=== PATIENT | female | born 1940 | race African-American/Black ===

== ENCOUNTER → 2019-08-16 | Outpatient (CLI) | payer OTHER, BC | LOC: CAT 10:52 | DX: R07.89 Other chest pain (principal) ==

== ENCOUNTER → 2019-11-12 | Outpatient (CLI) | payer OTHER, BC | LOC: CAT 12:23 → LABMALL 13:51 → CAT 13:51 | PROVIDERS: Family Medicine | DX: Z01.812 Encounter for preprocedural laboratory examination (principal); R93.89 Abnormal findings on diagnostic imaging of other specified body structures; K44.9 Diaphragmatic hernia without obstruction or gangrene; I70.0 Atherosclerosis of aorta; M25.70 Osteophyte, unspecified joint; J98.4 Other disorders of lung ==

== ENCOUNTER 2020-03-18 13:59 | Inpatient (IN) | payer OTHER, BC ==
[~2020-03-18] VITALS: Ht 170.2 cm; Wt 85.1 kg
--- NOTE | ~2020-03-18 | EMS ---
[place] [address] EMS Patient Care Report Name: ROSHAN BRICE Room #: 350-P ADM IN M.R.#: [id number] Admission: 03/18/20 Attend Phys: Trung Almaraz MD Discharge: Date of : 42 Report #: [id number] THIS REPORT FOR: //name// Report Transmitted: 03/20/2020 02:14 EMS Care Summary [place], [place]/[facility] Incident [id number] @ 03/18/2020 12:32 Incident Location [facility] [address] [place] [address] Patient ROSHAN BRICE Female, 80 Years 1940 Patient Address [address] [place] [address] Patient History Chronic Obstructive Pulmonary Disease (COPD),Diabetes, Patient Allergies Other drug allergy,Glimepiride, Patient Medications Other, Chief Complaint Altered mental status Disposition Transported No Lights/[place] Dispatch Reason Diabetic Problem Transported To [facility] Narrative Called to the scene for a diabetic. Upon arrival, Cheko MONREAL on the scene, pt was found unresponsive lying on the floor in her bedroom by a neighbor with a BS of 34mg/dl. Pt was last seen yesterday approx 1430. She lives on her own, walks on her own, possibly some mild dementia present, [place] [address] EMS Patient Care Report Name: ROSHAN BRICE Room #: 350-P ADM IN M.R.#: [id number] Admission: 03/18/20 Attend Phys: Trung Almaraz MD Discharge: Date of : 42 Report #: [id number] area. She reportedly fell approx a week ago but did not go to the hospital. Pt was moved to the EMS cot via a Willis-Colorer and loaded into the ambulance all w/o incident. Vitals obtained. Attempted IV's x 2 w/o success, 1.0mg Glucagon IM to R shoulder. IV's attempted x 2 w/o success. Pt LOC was starting to improve. IV obtained. 250cc D10W given, pt became PINON x 3 c/o being cold. Pt had some old wounds on her legs that she said was from a previous fall. She agreed to go to the hospital to get checked out. NS infused. D-stick repeated. En route: pt remained PINON x 3. RR to ER. Arrived: pt taken to ER #3 and moved to their bed w/o incident. Pt care & report to ER saff. Initial Vitals @12:55P: 75,SpO2: 97, @12:58P: 40,SpO2: 97, @12:55P: 64,SpO2: 83, @13:19P: 101,SpO2: 98, @13:03P: 48,SpO2: 98, @13:30P: 79,SpO2: 94, @13:07P: 84,R: 14,BP: 167/117,Pain: 0/10,GCS: 9,SpO2: 98,Revised Trauma: 11, @13:24P: 85,R: 16,BP: 170/76,Pain: 0/10,GCS: 15,Glucose: 236,SpO2: 97,Revised Trauma: 12, @13:03P: 73,SpO2: 99, @13:09P: 46,SpO2: 94, @PTAR: 16,Pain: 0/10,GCS: 8,Glucose: 34, Assessments @12:46MENTAL:Confused,SKIN:HEENT:LUNG SOUNDS:ABDOMEN:PELVIS//GI:EXTREMITIES:Left Arm: No Abnormalities,Right Arm: No Abnormalities,Left Leg: No Abnormalities,Right Leg: No Abnormalities,PULSE:NEURO:No Abnormalities,@13:24MENTAL:Place Oriented,Time Oriented,Event Oriented,Person Oriented,SKIN:HEENT:LUNG SOUNDS:ABDOMEN:PELVIS//GI:EXTREMITIES:PULSE:NEURO: Impression Altered Mental Status Procedures @13:20Normal Saline (.9% NaCl) 450cc (20 ga) Site: Hand-RightResponse: UnchangedSucceeded@12:46ALS AssessmentResponse: UnchangedSucceeded@13:22Dextrose 10% - 250 Milliliters (ml) - Intravenous (IV)Response: Improved@13:08Glucagon - 1 Milligrams (mg) - Intramuscular (IM)Response: Improved@13:16Saline Lock cc (20 ga) Site: Hand-LeftResponse: UnchangedFailed@13:13Saline Lock cc (20 ga) Site: Forearm-RightResponse: UnchangedFailed@13:10Saline Lock cc (18 ga) Site: Forearm-LeftResponse: UnchangedFailed@12:48StretcherResponse: Unchanged@13:003-Lead ECGResponse: UnchangedSucceeded@13:04Saline Lock cc (18 ga) Site: Hand-LeftResponse: UnchangedFailed@13:06Saline Lock cc (20 ga) Site: Forearm-RightResponse: [facility] [address] [place] [address] EMS Patient Care Report Name: ROSHAN BRICE Room #: 350-P ADM IN Juvenal#: [id number] Admission: 03/18/20 Attend Phys: Trung Almaraz MD Discharge: Date of : 44 Report #: [id number] UnchangedFailed Timeline COMMERCIAL PRODUCER,BP: / M,PULSE: ,RR: 16 R,SPO2: Ox,ETCO2: ,B,PAIN: 0,GCS: 8, 12:30,Call Received 12:30,Dispatch Notified 12:32,Dispatched 12:34,En Route 12:45,On Scene 12:46,At Patient 12:46,ALS Assessment,Response: UnchangedSucceeded, 12:48,Stretcher,Response: Unchanged 12:55,BP: / M,PULSE: 64,RR: R,SPO2: 83 Ox,ETCO2: ,BG: ,PAIN: ,GCS: , 12:55,BP: / M,PULSE: 75,RR: R,SPO2: 97 Ox,ETCO2: ,BG: ,PAIN: ,GCS: , 12:58,BP: / M,PULSE: 40,RR: R,SPO2: 97 Ox,ETCO2: ,BG: ,PAIN: ,GCS: , 13:00,3-Lead ECG,Response: UnchangedSucceeded, 13:03,BP: / M,PULSE: 73,RR: R,SPO2: 99 Ox,ETCO2: ,BG: ,PAIN: ,GCS: , 13:03,BP: / M,PULSE: 48,RR: R,SPO2: 98 Ox,ETCO2: ,BG: ,PAIN: ,GCS: , 13:04,Saline Lock cc 18 ga Site: Hand-Left,Response: UnchangedFailed, 13:06,Saline Lock cc 20 ga Site: Forearm-Right,Response: UnchangedFailed, 13:07,BP: 167/117 M,PULSE: 84,RR: 14 R,SPO2: 98 Ox,ETCO2: ,BG: ,PAIN: 0,GCS: 9, 13:08,Glucagon - 1 Milligrams (mg) - Intramuscular (IM),Response: Improved 13:09,BP: / M,PULSE: 46,RR: R,SPO2: 94 Ox,ETCO2: ,BG: ,PAIN: ,GCS: , 13:10,Saline Lock cc 18 ga Site: Forearm-Left,Response: UnchangedFailed, 13:13,Saline Lock cc 20 ga Site: Forearm-Right,Response: UnchangedFailed, 13:16,Saline Lock cc 20 ga Site: Hand-Left,Response: UnchangedFailed, 13:19,BP: / M,PULSE: 101,RR: R,SPO2: 98 Ox,ETCO2: ,BG: ,PAIN: ,GCS: , 13:20,Normal Saline (.9% NaCl) 450cc 20 ga Site: Hand-Right,Response: UnchangedSucceeded, 13:22,Dextrose 10% - 250 Milliliters (ml) - Intravenous (IV),Response: Improved 13:24,BP: 170/76 M,PULSE: 85,RR: 16 R,SPO2: 97 Ox,ETCO2: ,B,PAIN: 0,GCS: 15, 13:30,BP: / M,PULSE: 79,RR: R,SPO2: 94 Ox,ETCO2: ,BG: ,PAIN: ,GCS: , 13:35,Depart Scene 13:50,At Destination 14:12,Call Closed Disclaimer v1.1 Copyright 2020 [employer] This EMS Care Summary contains data elements from the applicable legal record (which may be displayed differently). It is designed to provide pertinent information for the following purposes: continuity of care, clinical quality, and state data reporting. The complete legal record is available to ED staff and administrators of the receiving hospital in [employer] Patient Tracker. All data is provided "as is."
--- NOTE | ~2020-03-18 | HC ---
[facility] [place] [address] CONSULTATION Name: ROSHAN BRICE Room #: 350-P ADM IN M.R.#: [id number] Admission: 03/18/20 Attend Phys: Trung Almaraz MD Discharge: Date of : 42 Report #: [id number] THIS REPORT FOR: cc: Trung Almaraz MD, Neal A. MD Al-Mubaslat, Ahmad MD ~ CC: Trung Almaraz DATE OF SERVICE: 03/19/2020 CONSULTING PHYSICIAN: Dr. Trung Almaraz. REASON FOR CONSULTATION: Hypoglycemia, type 2 diabetes mellitus. HISTORY OF PRESENT ILLNESS: This is a 80-year-old female patient whose medical background is significant for multiple medical issues including type 2 diabetes mellitus diagnosed many years ago. The patient has been on an insulin regimen consisting of Basaglar insulin 63 units in a.m., 66 units in p.m., in addition to NovoLog insulin 60 units before meals. She notes that she had been on this regimen for quite a while and denies having had particularly frequent issues with severe hypoglycemia, although she could recall a few. The patient was found by her neighbor on the day of admission unresponsive and with a blood glucose in the 30s noted by EMS personnel. She was resuscitated and brought to [facility] where she was admitted for further care and monitoring. She does not believe that she has had issues pertaining to diabetic retinopathy, nephropathy or neuropathy associated with diabetes mellitus. She does not recall having had a specific history of coronary artery disease. However, she does have hyperlipidemia and is maintained on fenofibrate 160 mg daily in addition to atorvastatin 80 mg daily. Also, she is hypertensive and is maintained on amlodipine 10 mg daily. REVIEW OF SYSTEMS: CONSTITUTIONAL: Intermittent issues with fatigue and tiredness, but not fever or chills or body weight changes. HEENT: Negative for sore throat, sinus pain or ear drainage. PULMONARY: Noted for occasional issues with shortness of breath, cough, but not hemoptysis. CARDIAC: Negative for chest pain, palpitations, syncope or presyncope. GASTROINTESTINAL: Negative for abdominal pain, nausea, vomiting or changes in bowel movement frequency. NEUROLOGY: Negative for loss of consciousness, seizure activity, or severe frequent headaches, she does not recall the loss of consciousness associated with this admission. Otherwise, review of systems noncontributory other than those mentioned in HPI. [address] [address] CONSULTATION Name: ROSHAN BRICE Room #: 350-P ADM IN M.R.#: [id number] Admission: 03/18/20 Attend Phys: Trung Almaraz MD Discharge: Date of : 42 Report #: [id number] PAST MEDICAL HISTORY: 1. Type 2 diabetes mellitus. 2. Hypertension. 3. Dyslipidemia. 4. COPD. OUTPATIENT MEDICATIONS: Include Lasix 40 mg daily, Basaglar insulin 66 units in a.m., 63 units in p.m., fenofibrate 160 mg daily, albuterol p.r.n., NovoLog insulin 60 units t.i.d. a.c., atorvastatin 80 mg at bedtime, amlodipine 10 mg daily, Shea 180 mg daily, enteric coated aspirin 81 mg daily, alpha lipoic acid 200 mg b.i.d., Colace 100 mg p.r.n. ALLERGIES: THE PATIENT NOTES ALLERGIES TO JACQUELIN INHIBITORS, CLINDAMYCIN, GLIMEPIRIDE, LOSARTAN AND SOY. FAMILY HISTORY: Noncontributory. SOCIAL HISTORY: The patient lives by herself. She denies use of tobacco, alcohol or illicit drugs. PHYSICAL EXAMINATION: GENERAL: Pleasant female patient who is not in apparent pain or distress. VITAL SIGNS: Blood pressure is 159/49 ____, heart rate is 55 beats per minute, respirations 17 per minute, temperature 37.5 degrees Celsius. CONSTITUTIONAL: The patient is lying in bed, appears comfortable, not in apparent distress. HEENT: Anicteric sclerae. Intact extraocular motions. NECK: Supple, without carotid bruits or thyromegaly. CHEST: Noted for moderate air entry bilaterally with scattered rales. No crackles. HEART: Regular rate and rhythm without murmurs or gallops. ABDOMEN: Soft, lax. No guarding. Active bowel sounds. EXTREMITIES: Lower extremity exam is negative for ankle edema. The patient has good pedal pulses bilaterally. NEUROLOGIC: Awake, alert and oriented to time, place and person. The remainder of her examination is nonfocal. PSYCH: Interactive. Normal mood and affect. LABORATORY RESULTS: Blood glucose on arrival was 91 and then bottomed to 30 and then 28 mg/dL earlier this morning, she had a high of 228 mg/dL before this dictation. Sodium 141, potassium 3.7, chloride 107, CO2 of 24, anion gap 10, BUN 13, creatinine 0.9, AST 33, total bilirubin 0.3, calcium 8.3, alkaline phosphatase 114, ALT 41, total protein 7.8, albumin 2.4, EGFR 73. Lactic acid 1.3. White blood count 7.5, hemoglobin 11.1, hematocrit 35.4, platelets 342. [facility] [address] [place] [address] CONSULTATION Name: ROSHAN BRICE Room #: 350-P [facility] IN [facility].#: [id number] Admission: 03/18/20 Attend Phys: Trung Almaraz MD Discharge: Date of : 42 Report #: [id number] ASSESSMENT AND PLAN: 1. Hypoglycemia. The patient had severe symptomatic hypoglycemia, which certainly grounds for admission and monitoring. The patient was counseled at length about the dangers of severe hypoglycemia Both short term and custodial, especially noting that she lives alone. I discussed the need to reduce her insulin doses considerably and obtain a baseline without hypoglycemia for further fine adjustments of her insulin regimen. In the immediate setting, blood glucose monitoring will continue and intervention as per the [facility]'s hypoglycemia protocol will be carried out accordingly. 2. Type 2 diabetes mellitus. As noted above, the patient is on high total daily dose of insulin, which has been associated with hypoglycemia, the primary cause for this admission, I will initiate basal bolus coverage as the patient is a seemingly out of hypoglycemia range, but will do so with caution given her hypoglycemia and the anticipated diminished p.o. intake during this hospital stay. I will start by initiating coverage with Lantus insulin 15 units b.i.d. as well as coverage for meals with 8 units of Humalog insulin and low intensity Humalog supplemental scale to be activated for a blood glucose over 200 mg/dL. I will also obtain a hemoglobin A1c for a better overall assessment of her level of control. Blood glucose monitoring will continue a.c. and at bedtime. 3. Hypertension. The patient's level of blood pressure control is generally adequate as per her report. She is to continue with the current regimen. 4. Hyperlipidemia. The patient is maintained on a combination of atorvastatin and fenofibrate, she is to continue with the same. I certainly appreciate this consultation by Dr. Almaraz. By: 1426 1459 Duc Colvin MD /nt
[2020-03-18 14:00] VITALS: BP 143/76
[2020-03-18 14:23] LABS: ABSOLUTE NEUTROPHILS 10.7 thou/uL (1.4-8.2); BASOPHILS 0.3 % (0.0-2.0); EOSINOPHILS 0.1 % (0.0-3.0); HEMATOCRIT 37.6 % (37.0-47.0); HEMOGLOBIN 11.9 gm/dL (12.0-15.0); LYMPHOCYTES 6.3 % (24.0-44.0); MCHC 31.7 g/dL (28.0-37.0); MCV 82.1 fL (80.0-100.0); PLATELET COUNT 355 thou/uL (150-400); POLYS 87.3 % (36.0-66.0); RBC 4.59 mil/uL (4.20-5.00); RDW 15.1 % (10.5-14.5); WBC 12.3 thou/uL (4.0-11.0)
[2020-03-18 14:39] LABS: ANION GAP 12 mmol/L (7-16); BUN 14 mg/dL (7-18); CALCIUM 8.7 mg/dL (8.5-10.1); CHLORIDE 104 mmol/L (98-107); CO2 25 mmol/L (21-32); CREATININE 0.7 mg/dL (0.6-1.0); GLUCOSE 180 mg/dL (74-106); POTASSIUM 3.6 mmol/L (3.5-5.1); SODIUM 141 mmol/L (136-145)
[2020-03-18 14:48] LABS: ALBUMIN 2.4 g/dL (3.4-5.0); SGOT 33 U/L (15-37); SGPT 41 U/L (30-65); TOTAL BILIRUBIN 0.3 mg/dL (0.2-1.0); TOTAL PROTEIN 7.8 g/dL (6.4-8.2); TROPONIN-I <0.06 ng/mL (<0.06)
[2020-03-18 15:23] LABS: URINE BILIRUBIN NEGATIVE (Negative); URINE BLOOD 1+ (Negative); URINE CLARITY CLEAR; URINE COLOR YELLOW; URINE GLUCOSE-RANDOM* NEGATIVE (Negative); URINE KETONES NEGATIVE (Negative); URINE LEUKOCYTES-REFLEX NEGATIVE (Negative); URINE NITRITE-REFLEX NEGATIVE (Negative); URINE PROTEIN (DIPSTICK) 3+ (Negative); URINE SPECIFIC GRAVITY 1.025 (1.005-1.035); URINE UROBILINOGEN 0.2 E.U./dl (0.2-1.0)
[2020-03-18 15:37] LABS: CASTS None Seen /LPF (None Seen); CRYSTALS None Seen /LPF (None Seen); SQUAMOUS 0-3 Few /LPF (0-3)
[2020-03-18 15:38] LABS: BACTERIA-REFLEX 1-9 Few /HPF (None Seen); URINE RBC 0-2 Rare /HPF (0-2); URINE WBC-REFLEX 0-5 Rare /HPF (0-5)
[2020-03-18] MEDS ORDERED: FUROSEMIDE 40 M40 M1 PO (16:34)
[2020-03-18] MEDS ORDERED: FENOFIBRATE160 MG PO (16:35)
[2020-03-18] MEDS ORDERED: VENTOLIN HFA 1818 GM INH (16:35)
[2020-03-18] MEDS ORDERED: NOVOLOG FL100 UNIT/M SUBQ (16:35)
[2020-03-18] MEDS ORDERED: BASAGLAR K100 UNIT/1 SUBQ ×2 (16:35→16:42)
[2020-03-18] MEDS ORDERED: AMLODIPINE BESY10 MG PO (16:36)
[2020-03-18] MEDS ORDERED: ATORVASTATIN CA80 MG PO (16:36)
[2020-03-18] MEDS ORDERED: PATADAY5 ML OPHTHALMIC (16:37)
[2020-03-18] MEDS ORDERED: ASA81BEC PO (16:43)
[2020-03-18] MEDS ORDERED: ALLEGRA ALLERG180 MG PO (16:43)
--- NOTE | 2020-03-18 16:43 | EKG ---
[facility] [place] [address] ELECTROCARDIOGRAM REPORT Name: ROSHAN BRICE Room #: 170-3 ADM IN M.R.#: [id number] Admission: 03/18/20 Attend Phys: Trung Almaraz MD Discharge: Date of : 44 Report #: [id number] THIS REPORT FOR: cc: Trung Almaraz MD, Neal A. MD Santiago, Patrick MD [facility] ~ THIS REPORT FOR: //name// [facility] ED Test Date: 2020-03-18 Test Time: 15:47:10 Pat Name: ROSHAN BRICE Department: Room: Gender: F Nut Grinder: adriana : 1940 Requested By: Arnold Herbert Order Number: [id number] MD: Jacobo Staton Measurements Intervals [place] Rate: 111 P: 0 IA: 270 QRS: 82 QRSD: 132 T: -12 QT: 393 QTc: 534 Interpretive Statements Sinus tachycardia Ventricular premature complex Left atrial enlargement Right bundle branch block No previous ECG available for comparison Electronically Signed On 03-18-2020 16:42:59 CDT by Jacobo Staton [email or web address] <ELECTRONICALLY SIGNED> By: Jacobo Staton MD, FAC 03/18/20 1642 1547 1547 Jacobo Staton MD, [facility] /EPI
[2020-03-18] MEDS ORDERED: ALPHA LIPOIC A200 M1 PO (16:44)
[2020-03-18] MEDS ORDERED: COLACE100 MG PO (16:45)
[2020-03-18 18:54] VITALS: BP 147/85
[2020-03-18 19:33] VITALS: BP 144/68
--- NOTE | 2020-03-18 22:00 | NUR ---
RECIEVED PT FROM ED UPON ARRIVAL TO UNIT PT ALERT ORIENTED X4 , DATA BASE AND ASSESSMENT COMPLETED. PT HAVE MULTI WOUNDS PRESSURE AND ABRASIONS FROM FALLING AT HOME. PICTURES TAKEN. CARDIAC MONTIOR SHOW SR ARR BB 70 , BP STABLE. HS SNACK EATEN TOLERATED WELL. PT ASSISTED TO BSC , GAIT WEAK AND UNSTEADY. BED ALARM PLACED ON , FEMALE EXTERNAL CATHERTER PLACED. DISCUSSED PLAN OF CARE AND PT VERBALIZED UNDERSTANDING. WILL CONINTUE WITH SHAREE PLAN OF CARE.
[2020-03-19 00:37] VITALS: BP 149/58
[2020-03-19 04:56] VITALS: BP 161/59
[2020-03-19 07:32] VITALS: BP 159/49
[2020-03-19 09:40] LABS: HEMATOCRIT 35.4 % (37.0-47.0); HEMOGLOBIN 11.1 gm/dL (12.0-15.0); MCH 25.6 pg (26.0-34.0); MCHC 31.3 g/dL (28.0-37.0); MCV 81.8 fL (80.0-100.0); RBC 4.32 mil/uL (4.20-5.00); RDW 15.2 % (10.5-14.5); WBC 7.5 thou/uL (4.0-11.0)
[2020-03-19 09:58] LABS: CALCIUM 8.3 mg/dL (8.5-10.1); CREATININE 0.9 mg/dL (0.6-1.0); POTASSIUM 3.7 mmol/L (3.5-5.1)
--- NOTE | 2020-03-19 11:34 | NUR ---
INITIAL ASSESSMENT: Received consult. CHAY reviewed chart and spoke with nursing. Pt was admitted from home due to hypoglycemia/failure to thrive. Pt placed in Enhanced Isolation to r/o COVID-19. Pt is afebrile and on 2L of O2. COVID test is pending. CHAY spoke with pt via phone. Introduced role of SW. Pt is alert/orientated and states she lives at home alone. Prior to admission, pt was independent with ADLs. Pt states she uses a cane when she leaves her house. There are steps down to her laundry room, but pt states that her neighbor/friend, Nancy, helps her with laundry. Pt has used [facility] in the past. No hx of post-acute placement. Pt's PCP is Dr. Almaraz. Therapy sj ordered to see pt and assist with recommendations for discharge needs. SW faxed HH referral to [facility] for review. Pt is agreeable with HH services. Pt states she does not want to go to a facility due to COVID. CHAY is following to assist as needed with discharge planning.
--- NOTE | 2020-03-19 12:50 | NUR ---
7755 this nurse was notified pt bs 30, rehecked by automobile rental clerk and bs 28. Pt assesed by this nurse and she is alert and responsive, answering questions appropriately. Gave x 3 cups of OJ. Pt remains alert and responsive, in no acute distress. Drank OJ without dificulty. Denies chills, RR 20, denies feeling faint. She is taslking and laughing. notified stat glucose orders placed. is here on the floor and will start IV fuids for pt. Reckeched bs 49. Glucose gel given, rechecked bs 125
[2020-03-19 16:55] VITALS: BP 135/52
[2020-03-19 19:06] VITALS: BP 148/62
[2020-03-20 01:06] LABS: GLYCOHEMOGLOBIN (HGB A1C) 7.9 % (4.8-5.6)
[2020-03-20 03:47] VITALS: BP 161/58
--- NOTE | 2020-03-20 05:19 | NUR ---
PT A/0X4. PT X1 ASSIST TO BSC. FOLLOWING POC WITH IVF D5/LR GTT. WOUND CARE DONE WITH SILVER SULFADIAZINE. ALSO APPLIED BARRIER CREAM TO BUTTOCK. PT STATED SHE WAS IN MODERATE PAIN, CALLED PHYSICIAN AND RECEIVED ORDER FOR PO HYDROCODONE WHICH HAD GOOD RESULTS FOR RELIEF. PT IV DISLODGED AND REPLACED WITH NEW 22GA IN RIGHT FOREARM. PLACED PRATHO BOOTS, BUT PATIENT REMOVED SHE ROLLS VERY MUCH IN SLEEP.
[2020-03-20 07:17] VITALS: BP 157/61
[2020-03-20 11:10] VITALS: BP 124/44
--- NOTE | 2020-03-20 16:09 | NUR ---
PT IS COVID NEGATIVE. PT WAS SEEN BY IR THIS DAY AND NO INTERVENTION IS INDICATED AT THIS TIME. DR. FRYE DIDN'T ANTICIPATED THAT PT WOULD LIKELY BE MEDICALLY STABLE TO DC OVER THER WEEKEND. [facility] IS ABLE TO ACCEPT PT FOR SERVICES UPON DISCHARGE. SHOULD PT BE ABLE TO DC OVER WEEKEND CALL [facility] AT ( FAX ORDERS TO .
[2020-03-20 16:14] VITALS: BP 152/61
--- NOTE | 2020-03-20 17:18 | NUR ---
PATIENT HAS RESTED IN BED THROUGH THE DAY. RESPIRATIONS ARE EVEN AND UNLABORED. SHE DID COMPLAIN OF PAIN TO BUTTOCKS AND PRN PAIN MED ADMININSTERED IT WAS EFFECTIVE. WILL CONT WITH PLAN OF CARE.
[2020-03-20 20:00] VITALS: BP 167/62
[2020-03-20 20:10] VITALS: BP 167/72
--- NOTE | 2020-03-21 05:52 | NUR ---
PT IS ALERT AND ORIENTED X4. LUNGS ARE CLEAR. ABDOMEN IS ROUND AND SOFT. UP TO BED SIDE COMMODE TO VOID. FOREGETFULL AT TIMES. EXTENSIVE WOUNDS ON SACAL AREA NOTED AND LEGS . WOUND CARE DONE PER NURSING THIS SHIFT. PT REPORTS SHE FEEL AT HOME NOT SURE WHAT EXACTLY SHE HIT THAT CAUSED THAT. CALL LIGHT WTIHIN REACH IF NEEDS ASSISTANCE SHE CALLS . WILL CONTINUE TO DO WOUND CARE PER SHIFT ON PT.
[2020-03-21 07:57] VITALS: BP 168/69
--- NOTE | 2020-03-21 08:39 | NUR ---
ASSUMED CARE OF PT AT SHIFT CHANGE, A&0X4, SLIGHTLY FORGETFUL, ENCOURAGED TO USE CALL LIGHT FOR ANY NEEDS ANABELLE AMB TO [facility] EVEN THOUGH SHE LIVES ALONE. WOUND CARE TO BE DONE PER SHIFT, C/O FREQ URINATION AND A HEADACHE, GAVE EDUCATION ON SIDE EFFECTS OF HYDROCODONE, PT DIDN'T SLEEP DUE TO FREQ URINATION. WEARS BRIEFS AT HOME. SEE SEPARATE INTERVENTIONS FOR ASSESSMENTS, PT WILL BE WITH US THRU WEEKEND. ENCOURAGED HER TO USE CALL LIGHT FOR ANY NEEDS. STILL HIGH B/P'S DR. FRYE AWARE
[2020-03-21 11:43] VITALS: BP 103/55
[2020-03-21 11:49] VITALS: BP 155/52
[2020-03-21 16:11] VITALS: BP 144/55
--- NOTE | 2020-03-22 04:34 | NUR ---
PT IS ALERT AND ORIENTED X4. LUNGS ARE CLEAR. ABDOMEN IS ROUND AND SOFT BOWEL SOUNDS ACTIVE X4. UP TO BEDSIDE COMMODE TO VOID. SOMETIMES SHE IS INCONTINENT. CALL LIGHT WITHIN REACH IF NEEDS ASSISTANCE. VITALS STABLE. WOUND CARE DONE THIS SHIFT SACRAL WOUNDNDS AND LEGS ABRASIONS NOTED. WILL CONTINUE TO ASSEESS AND MONITOR PER NURSING.
[2020-03-22 04:51] VITALS: BP 154/56
[2020-03-22 07:30] VITALS: BP 166/73
--- NOTE | 2020-03-22 10:10 | NUR ---
covid + and ID consulted.
[2020-03-22 11:09] VITALS: BP 155/65
[2020-03-22 15:44] VITALS: BP 137/70
--- NOTE | 2020-03-22 18:33 | NUR ---
ASSUMED CARE AT CHANGE OF SHIFT. ALERT X4, DENIES PAIN, DENIES SOB, WOUND CARE PROVIDED PER ORDERS. PROGRESSING TOWARDS GOALS. DC HOME TOMORROW. CALLS FOR ASSISTANCE. FALL PRECAUTION IN PLACE
[2020-03-22 20:10] VITALS: BP 142/56
--- NOTE | 2020-03-23 03:25 | NUR ---
A/O X 4.TYLENOL GIVEN FOR PAIN PER PATIENT REQUEST.UP WITH ASSIST TO THE BEDSIDE COMMODE.VOIDS.MONITOR SHOWS SR.POC CONTINUED.
[2020-03-23 04:30] VITALS: BP 147/59
[2020-03-23 07:30] VITALS: BP 168/630
[2020-03-23] MEDS ORDERED: HUMALOG100 UNIT/1 SUBQ (07:36)
[2020-03-23] MEDS ORDERED: BASAGLAR K100 UNIT/1 SUBQ (07:37)
[2020-03-23 10:24] VITALS: BP 168/94
[2020-03-23 10:25] VITALS: BP 168/94
--- NOTE | 2020-03-23 11:03 | NUR ---
PT DISCHARGING TODAY TO HOME WITH [facility] FAXED DC ORDERS/SUMMARY SPOKE WITH PROSPER IN INTAKE SHE RECEIVED ORDERS AND WILL NOTIFY PT TO SET UP VISITS.
[2020-03-23 12:27] VITALS: BP 168/94
--- NOTE | 2020-03-23 12:49 | NUR ---
ASSUMED CARE PT SHIFT CHANGE. ASSESSMENT CHARTED.MEDS GIVEN PER AUG. PT ALERT AND ORIENTED.VSS. NO C/O PAIN. O2 SATS WNL ON ROOM AIR. WOUND CARE DONE PER ORDERS. DC ORDER ACKNOWLEDGED AND IMPLEMENTED. DISCUSSED PAPERWORK WITH PT COMMUNIATES UNDERSTANDING .PT LEFT UNIT WITH ALL BELONGINGS ACCOMPANIED BY RIDE. IV REMOVED .TELE REMOVED.
== END 2020-03-23 12:50 | disposition home health service (06) | DRG 637 ==
LOC: ER 13:59 → 3W 16:40 → EROBS 16:40 → 3W 19:33 → 2N 03-20 18:05
PROVIDERS: Internal Medicine; Physician Assistant; ADMIT Family Medicine; ATTEND Family Medicine
DX: E11.649 Type 2 diabetes mellitus with hypoglycemia without coma (principal); E43 Unspecified severe protein-calorie malnutrition; G92 Toxic encephalopathy; R62.7 Adult failure to thrive; L89.150 Pressure ulcer of sacral region, unstageable; E78.5 Hyperlipidemia, unspecified; I10 Essential (primary) hypertension; E11.51 Type 2 diabetes mellitus with diabetic peripheral angiopathy without gangrene; L89.320 Pressure ulcer of left buttock, unstageable; I70.209 Unspecified atherosclerosis of native arteries of extremities, unspecified extremity; Z20.828 Contact with and (suspected) exposure to other viral communicable diseases; J44.9 Chronic obstructive pulmonary disease, unspecified; Z79.4 Long term (current) use of insulin; Z79.899 Other long term (current) drug therapy; Z79.82 Long term (current) use of aspirin; Z88.8 Allergy status to other drugs, medicaments and biological substances; Z88.1 Allergy status to other antibiotic agents; Z68.29 Body mass index [BMI] 29.0-29.9, adult
CPT/HCPCS: 10081; 10879

== ENCOUNTER 2020-03-30 17:54 | Inpatient (IN) | payer OTHER, BC ==
[~2020-03-30] VITALS: Ht 182.9 cm; Wt 84.8 kg
[~2020-03-30 17:54] MED LIST: ALLEGRA ALLERG180 MG PO; ALPHA LIPOIC A200 M1 PO; AMLODIPINE BESY10 MG PO; ASA81BEC PO; ATORVASTATIN CA80 MG PO; BASAGLAR K100 UNIT/1 SUBQ; COLACE100 MG PO; FENOFIBRATE160 MG PO; FUROSEMIDE 40 M40 M1 PO; HUMALOG100 UNIT/1 SUBQ; NOVOLOG FL100 UNIT/M SUBQ; PATADAY5 ML OPHTHALMIC; VENTOLIN HFA 1818 GM INH
[2020-03-30 18:03] VITALS: BP 155/57
[2020-03-30 19:02] LABS: HEMATOCRIT 34.5 % (37.0-47.0); HEMOGLOBIN 11.2 gm/dL (12.0-15.0); MCH 26.4 pg (26.0-34.0); MCHC 32.4 g/dL (28.0-37.0); MCV 81.3 fL (80.0-100.0); RBC 4.24 mil/uL (4.20-5.00); RDW 15.3 % (10.5-14.5); WBC 7.7 thou/uL (4.0-11.0)
[2020-03-30 19:12] LABS: CALCIUM 9.2 mg/dL (8.5-10.1); CREATININE 0.8 mg/dL (0.6-1.0); POTASSIUM 4.4 mmol/L (3.5-5.1)
[2020-03-30 19:18] LABS: ALBUMIN 2.7 g/dL (3.4-5.0); TOTAL BILIRUBIN 0.3 mg/dL (0.2-1.0); TOTAL PROTEIN 7.3 g/dL (6.4-8.2)
[2020-03-30 21:00] VITALS: BP 160/62
--- NOTE | 2020-03-30 21:03 | NUR ---
Called to give report, was told RN Caro is in a pt's room
[2020-03-30 21:13] VITALS: BP 158/62
[2020-03-30 21:34] VITALS: BP 163/65
[2020-03-31 04:52] VITALS: BP 148/57
--- NOTE | 2020-03-31 07:45 | NUR ---
RECEIVED FROM ER UNDER 'S CARE. AXOX4. VSS. WOUND PICTURES TAKEN AND FILED. INITIAL WOUND CARE REDNERED AT BEDSIDE. HOME MEDS AND PRN MEDS STARTED PER 'S ORDER. NO S/S ACUTE DISTRESS NOTED OR REPORTED AT THIS TIME. WILL CONT TO MONITOR FOR ANY CHANGES IN CONDITION.
[2020-03-31 07:57] VITALS: BP 149/56
--- NOTE | 2020-03-31 13:42 | NUR ---
PT ADMITTED RELATED TO DIABETIC FOOR ULCER. CM REVIEWED CHART AND SPOKE WITH CARE TEAM. CM CALLED AND SPOKE WITH PT OVER THE PHONE THIS DAY. PT APPEARED TO BE A&O X4. CM ROLE INTRODUCED. PT INDICATED SHE LIVES ALONE IN A HOUSE. SHE INDICATED SHE HAD BEEN INDEPENDENT WITH GAIT AND ADLS. PT HAS A CANE SHE USES IN THE [place]. PT INDICATED SHE HAD BEEN ON SERVICE WITH [facility] PRIOR TO ADMISSION AND THAT SHE WOULD LIKE TO RESUME SERVICES WITH THEM UPON DC. CLINICAL TO BE SENT TO THEM. PT INDICATED SHE PLANS TO RETURN HOME WITH HH SERVICES ONCE MEDICALLY STABLE. CM TO FOLLOW INDICATED WITH DC PLANNING.
[2020-03-31 15:21] VITALS: BP 146/45
--- NOTE | 2020-03-31 19:30 | NUR ---
PT A&OX4, VSS, DENIES PAIN. WOUND CARE DOCTOR IN AND DID ALL WOUND CARE EXCEPT BILAT FEET. BILAT FEET DELEGATED. IV INTACT SALINE LOCKED. NO SIGNS OF DISTRESS. WILL CONTINUE TO MONITOR.
[2020-03-31 20:00] VITALS: BP 138/54
--- NOTE | 2020-04-01 05:51 | NUR ---
ASSUMED CARE OF PT AT 1900. PT IS A/O X4 AND UP WITH ASSIST TO THE BSC. PT REFUSES TO WEAR HEAL PROTECTORS BUT HAS ALLOWED FOR LOWER EXTREMITITES TO BE ELEVATED ON A PILLOW. ALL WOUND DRSG'S C/D/I. PT C/O PAIN. PRN PAIN MEDICATION GIVEN DIRECTED. PT IV TO LEFT HAND INFILTRATED AND WAS REMOVED WITH CATHETER INTACT. REPLACED. AT THIS TIME, PT IS LYING IN HER BED AND APPEARS TO BE SLEEPING. WILL CONTINUE TO MONITOR. FALL PRECAUTIONS ARE IN PLACE, CALL LIGHT IS WITHIN REACH.
[2020-04-01 08:00] VITALS: BP 152/52
[2020-04-01 11:02] LABS: HEMATOCRIT 35.2 % (37.0-47.0); HEMOGLOBIN 11.3 gm/dL (12.0-15.0); MCH 26.1 pg (26.0-34.0); MCV 81.5 fL (80.0-100.0); RBC 4.32 mil/uL (4.20-5.00); RDW 15.6 % (10.5-14.5); WBC 7.1 thou/uL (4.0-11.0)
[2020-04-01 11:10] LABS: CALCIUM 8.8 mg/dL (8.5-10.1); CREATININE 0.9 mg/dL (0.6-1.0); POTASSIUM 3.5 mmol/L (3.5-5.1)
--- NOTE | 2020-04-01 11:42 | NUR ---
ASSUMED CARE OF PATIENT AT 0800. ASSESSMENT CHARTED. VITAL SIGNS STABLE. PATIENT IS A&OX4 AND MAKES NEEDS KNOWN. UP TO BSC W ASSIST. VOICED SADNESS D/T THE LOSS OF 4 FRIENDS RECENTLY. PATIENT WENT DOWN FOR AN AORTAGRAM W RUNOFF. LEFT UNIT AT 1105 [address] CV NURSE. PATIENT TO TRANSFER TO RM. 209 AFTER PROCEDURE...
--- NOTE | 2020-04-01 13:12 | NUR ---
PT IS OFF UNIT HAVING ANGIOGRAM COMPLETED. CARE TEAM INDICATED THAT PT IS TO TRANSFER TO RM 209 POST PROCEDURE FOR MEDICAL MONITORING. CM TO FOLLOW INDICATED WITH DC PLANNING.
--- NOTE | 2020-04-01 13:35 | HC ---
[facility] [place] [address] CONSULTATION Name: ROSHAN BRICE Room #: 454-P ADM IN M.R.#: [id number] Admission: 03/30/20 Attend Phys: Trung Almaraz MD Discharge: Date of : 42 Report #: [id number] THIS REPORT FOR: cc: Trung Almaraz MD, Neal A. MD Althoff, Jeffrey R. MD ~ CC: Trung Almaraz DATE OF SERVICE: 03/31/2020 CHIEF COMPLAINT: Multiple lower extremity ulcerations. HISTORY OF PRESENT ILLNESS: This is a 80-year-old female patient with whom I am familiar from recent hospitalization who was readmitted with increasing drainage and redness regarding lower extremity ulcerations. The patient states she has been very frustrated with home health, feels that she was not getting the advice that she wished to have. Nonetheless, she is here for further wound care evaluation. PAST MEDICAL HISTORY: Positive for malnutrition, weakness with falls, failure to thrive, diabetes mellitus, peripheral vascular disease. MEDICATIONS: Include Lasix, fenofibrate, albuterol, insulin, amlodipine, Pataday, Shea and Colace. ALLERGIES: JACQUELIN INHIBITORS, CLINDAMYCIN, GLIMEPIRIDE, LOSARTAN, AND SOY. SOCIAL HISTORY: The patient lives at home alone. No history of alcohol or tobacco use. FAMILY HISTORY: Unknown. REVIEW OF SYSTEMS: CONSTITUTIONAL: The patient denies fever, chills or weight loss. NEUROLOGICAL: The patient denies focal weakness, numbness or tingling. EYES: The patient denies visual changes, redness, or drainage. ENT: The patient denies earache, nasal drainage or sore throat. CARDIOVASCULAR: The patient denies chest pain, palpitations or diaphoresis. PULMONARY: The patient denies cough or shortness of breath. GASTROINTESTINAL: The patient denies nausea, vomiting, diarrhea, or abdominal pain. ORTHOPEDIC: The patient denies significant pain, but does have ulcerations on both lower extremities, bilateral feet, lower legs and the left hip and gluteal region. Other systems in a 14-point review of systems are negative. [address] [address] CONSULTATION Name: ROSHAN BRICE Room #: 454-P [facility] IN .R.#: [id number] Admission: 03/30/20 Attend Phys: Trung Almaraz MD Discharge: Date of : 42 Report #: [id number] PHYSICAL EXAMINATION: VITAL SIGNS: At this time include temperature 36.9, pulse 70, respiratory rate 18, blood pressure 146/45. GENERAL: This is a chronically ill-appearing female patient who appears to be in minimal distress. HEENT: Head normocephalic. Nose and throat are clear. NECK: Supple. LUNGS: Clear. ABDOMEN: Soft. Bowel sounds present. EXTREMITIES: Lower extremities demonstrate what appeared to be stage 3 pressure ulcerations to the left hip and buttocks. They are healthy, clean, granulating, no evidence of infection. Lower extremities demonstrate diminished distal pulses with only slightly delayed capillary refill. She has ulcerations on both feet, both of which are moist with a mix of granulation fibrin. The areas of eschar on the lower legs have now resolved and are epithelized. NEUROLOGIC: The patient is alert and oriented and appropriate at this time. LABORATORY DATA: Include white blood cell count 7.7, hemoglobin 11.2. Sodium 139, potassium 4.4, chloride 106, CO2 of 24, BUN 16, creatinine 0.8, glucose of 182. Albumin is 2.7. CLINICAL IMPRESSION: 1. Stage 3 pressure ulcer of the left hip and right buttock. 2. Diabetic type ulceration to the left and right lateral feet. 3. Left great toe and right medial malleolus diabetic ulcerations with dry stable eschar. 4. Left lateral knee ulceration with dry stable eschar. 5. Resolved abrasions to bilateral lower extremities. 6. Hypertension, diabetes mellitus, chronic obstructive pulmonary disease. RECOMMENDATIONS: At this point in time, I recommend silver foam daily and p.r.n. to the hip and gluteal ulceration, low air loss mattress, q. 2 hours turning positioning. We will recommend Dakin's moist gauze to the left and right foot ulcers. We will recommend Betadine paint to the areas of eschar on the left great toe and right medial malleolus as well as the left lateral knee. She has significant peripheral arterial disease. We will ask Interventional Radiology to see her and I have discussed with Dr. Long. The patient is agreeable to current plan. She is very insistent that she is going to go back home again. She wishes to continue with [facility] health, which is a different nurse to care for her than the one that was seeing her currently. I appreciate being asked to see her in consultation. <ELECTRONICALLY SIGNED> By: Jose Guadalupe Peña MD 04/01/20 1335 1707 193 Jose Guadalupe Peña MD /nt
--- NOTE | 2020-04-01 14:42 | NUR ---
FAXED REFERRAL FOR RESUMPTION OF CARE AT DISCHARGE TO A HH SPOKE WITH GUALBERTO IN INTAKE SHE RECEIVED REFERRAL AND WILL RESUME CARE AT [place].
[2020-04-01 14:44] VITALS: BP 138/54
--- NOTE | 2020-04-01 15:13 | NUR ---
CALLED REPORT TO CCU; 209. RN IS OCCUPIED, WILL RETURN CALL MAIDA
--- NOTE | 2020-04-01 16:52 | NUR ---
I AGREE WITH NURSING ASSESSMENT AND NURSING NOTE DONE BY DEON/EMPLOYEE RELATIONS ADVISOR.
--- NOTE | 2020-04-01 17:39 | NUR ---
ASSESSMENT CHARTED - MEDS PER AUG - IV HELD DUE TO TROUGH BEING 14. ACCUCHAECKS CHARTED - PT TO THE UNIT POST ARTERIOGRAM THIS AFTERNOON. VVS GROIN SITE C/D/I. NO CO'S AT PAIN OR NAUSEA. KATE DIET NAD FLUIDS. PT UNABLE TO VOID ON BED PAIN - INCONTINENT IN BED. IV FLUIDS ORDERED. NO CO'S AT THE PRESENT TIME.
[2020-04-01 19:20] VITALS: BP 153/54
--- NOTE | 2020-04-02 03:25 | NUR ---
PATIENT IS PROGRESSING SLOWLY IN HER CARE PLAN. VITAL SIGNS STABLE WITH PATIENT HAVING NO COMPLAINTS OF NAUSEA. PATIENT DID COMPLAIN OF PAIN IN HER BUTTOCKS WHICH WAS TREATED APPROPRIATELY THROUGH MEDICATIONS AND REPOSITIONING. FULLY ORIENTED, PATIENT IS ABLE TO CALL APPROPRIATELY FOR NEEDS AND PARTICIPATE IN CARE. BREATHING STABLE ON ROOM AIR EVIDENCED BY ASSESSMENTS AND SPOT OXYGENATION CHECKS. WOUND/SKIN CARE PROVIDED PER ORDER. PATIENT REFUSED SEVERAL TURNS OVERNIGHT. LEFT GROIN SITE CLEAN, DRY, AND INTACT FROM YESTERDAYS PROCEDURE. PATIENT HAS BEEN KEPT NPO FROM MIDNIGHT ON IN ANTICIPATION OF TODAYS PROCEDURE. UP MULTIPLE TIMES TO BEDSIDE COMMODE WITH ASSISTANCE INCIDENT FREE. CONTINUE PLAN OF CARE.
[2020-04-02 04:18] VITALS: BP 132/53
[2020-04-02 10:07] VITALS: BP 131/46
--- NOTE | 2020-04-02 15:31 | NUR ---
Patient transferred to CCU. SP with patient she resides at home alone. She has her own walker in room that she uses in community. She rec arterigram today. Plan tenative dc home in am. Offered post acute care but patient adamently declines. Plan home with [facility] [place].
--- NOTE | 2020-04-02 17:30 | NUR ---
ASSESSMENT CHARTED - MEDS PER MAR - KATE DIET AND FLUIDS. NO CO'S OF PAIN OR NAUSEA. ACCUCHECKS CHARTED - INSULIN GIVEN ORDERED. PT TO IR THIS AM ARTERIOGRAM DONE ON R LEG. GROIN SITE POST PROCEDURE C/D/I, VSS. DRESSING TO WOUNDS COMPLETED. PT TO BE SEEN BY PT AND OCC THERAPY IN THE AM. PT INCONTINENT X 1 AND ALSO UP TO THE BEDSIDE [facility] AM[facility]. PT WITH NO CO'S AT THE PRESENT TIME.
[2020-04-02 20:04] VITALS: BP 158/53
[2020-04-03 00:12] VITALS: BP 163/67
[2020-04-03 04:05] VITALS: BP 140/64
[2020-04-03 05:30] LABS: HEMATOCRIT 33.9 % (37.0-47.0); HEMOGLOBIN 10.7 gm/dL (12.0-15.0); MCH 25.9 pg (26.0-34.0); MCHC 31.7 g/dL (28.0-37.0); MCV 81.7 fL (80.0-100.0); RBC 4.15 mil/uL (4.20-5.00); RDW 15.9 % (10.5-14.5); WBC 7.1 thou/uL (4.0-11.0)
[2020-04-03 05:40] LABS: CALCIUM 8.8 mg/dL (8.5-10.1); CREATININE 0.9 mg/dL (0.6-1.0); POTASSIUM 3.5 mmol/L (3.5-5.1)
--- NOTE | 2020-04-03 05:42 | NUR ---
ASSUMED CARE OF PATIENT AT 1900; ASSESSMENTS CHARTED; SR/1AVB/BBB ON MONITOR; RT/LT GROIN SITES C/D/I WITH NO HEMATOMA OR C/O PAIN; PATIENT REFUSED [id number]; UP WITH ASSISTANCE TO BSC; WOUND CARE PROVIDED PER ORDER; CONTINUE POC;
[2020-04-03] MEDS ORDERED: CLOPIDOGREL75 MG PO (07:40)
[2020-04-03] MEDS ORDERED: NORCO 10-325 T1 EACH PO (07:47)
[2020-04-03] MEDS ORDERED: CEFDINIR300 MG PO (07:48)
[2020-04-03 08:00] VITALS: BP 151/66
[2020-04-03 10:35] VITALS: BP 138/54
--- NOTE | 2020-04-03 11:14 | NUR ---
PT DRESSING CHANGED. PT EDUCATED ON WATCHING THE RIGHT GROIN SITE FOR SWELLING AND PAIN. PT INFOMRED ABOUT THE DRESSING CHANGE INSTRUCTIONS. PT INFORMED ABOUT THE MEDICATION LIST.PT DISCHARGED AT 1100. PT WAITING FOR HER RIDE TO HOME.
--- NOTE | 2020-04-03 12:35 | NUR ---
ORDERS RECEIVED FOR PT EVAL AND TREAT. Pt ADMITTED WITH DIABETIC FOOT ULCER. Pt LIVES ALONE IN HOME WITH ONE DEDRA AND ONE LEVEL INSIDE. DOES NOT USE AD IN HOME BUT USES CANE OR 4WW IN COMMUNITY. HAS 9 STEPS DOWN TO LAUNDRY BUT HER FRIEND HAS BEEN DOING THAT FOR HER. MULTIPLE RECENT FALLS OUT OF BED AND Pt STATED AT LAST ADMISSION A FEW WEEKS AGO THAT SHE WAS PLANNING TO GET BEDRAILS. OT REVIEWED THIS WITH Pt PRIOR TO PT ARRIVAL. Pt REPORTED FALLING 3 WEEKS AGO AFTER GETTING A PHONE CALL THAT THREE OF HER FRIENDS HAD . Pt REFUSING ACUTE PT SERVICES; DISCUSSED RESTARTING HER HH PT UPON D/C. ACUTE PT TO SIGN OFF. PLEASE RE-CONSULT PT IF NEEDED.
== END 2020-04-03 11:20 | disposition home health service (06) | DRG 628 ==
LOC: ER 17:54 → 4W 20:30 → EROBS 20:30 → 4W 21:28 → 2N 04-01 13:39
PROVIDERS: Nurse Practitioner; Student in an Organized Health Care Education/Training Program; ADMIT Family Medicine; ATTEND Family Medicine
PROC: B4181ZZ Fluoroscopy of Bilateral Renal Arteries using Low Osmolar Contrast (ICD-10-PCS; principal; 2020-04-01)
PROC: 047K3DZ Dilation of Right Femoral Artery with Intraluminal Device, Percutaneous Approach (ICD-10-PCS; principal; 2020-04-01)
PROC: 047J3DZ Dilation of Left External Iliac Artery with Intraluminal Device, Percutaneous Approach (ICD-10-PCS; principal; 2020-04-01)
PROC: B41D1ZZ Fluoroscopy of Aorta and Bilateral Lower Extremity Arteries using Low Osmolar Contrast (ICD-10-PCS; principal; 2020-04-01)
PROC: 047D3DZ Dilation of Left Common Iliac Artery with Intraluminal Device, Percutaneous Approach (ICD-10-PCS; principal; 2020-04-01)
PROC: 047L3DZ Dilation of Left Femoral Artery with Intraluminal Device, Percutaneous Approach (ICD-10-PCS; 2020-04-02)
PROC: 04CL3ZZ Extirpation of Matter from Left Femoral Artery, Percutaneous Approach (ICD-10-PCS; 2020-04-02)
DX: E10.621 Type 1 diabetes mellitus with foot ulcer (principal); E43 Unspecified severe protein-calorie malnutrition; L89.313 Pressure ulcer of right buttock, stage 3; L89.223 Pressure ulcer of left hip, stage 3; L97.829 Non-pressure chronic ulcer of other part of left lower leg with unspecified severity; L03.116 Cellulitis of left lower limb; E10.622 Type 1 diabetes mellitus with other skin ulcer; J44.9 Chronic obstructive pulmonary disease, unspecified; Z96.653 Presence of artificial knee joint, bilateral; E78.5 Hyperlipidemia, unspecified; N18.9 Chronic kidney disease, unspecified; Z60.2 Problems related to living alone; I12.9 Hypertensive chronic kidney disease with stage 1 through stage 4 chronic kidney disease, or unspecified chronic kidney disease; E10.51 Type 1 diabetes mellitus with diabetic peripheral angiopathy without gangrene; E10.22 Type 1 diabetes mellitus with diabetic chronic kidney disease; S80.812A Abrasion, left lower leg, initial encounter; S80.811A Abrasion, right lower leg, initial encounter; R62.7 Adult failure to thrive; Z90.710 Acquired absence of both cervix and uterus; Z88.1 Allergy status to other antibiotic agents; Z88.8 Allergy status to other drugs, medicaments and biological substances; Z68.24 Body mass index [BMI] 24.0-24.9, adult; Z79.82 Long term (current) use of aspirin; Z79.899 Other long term (current) drug therapy; X58.XXXA Exposure to other specified factors, initial encounter; Y93.89 Activity, other specified; Y92.89 Other specified places as the place of occurrence of the external cause; Y99.8 Other external cause status
CPT/HCPCS: 10040; 10081; 10194

== ENCOUNTER → 2020-08-26 | Outpatient (CLI) | payer OTHER, BC ==
[~2020-08-26] MED LIST changes: +CEFDINIR300 MG PO; +CLOPIDOGREL75 MG PO; +NORCO 10-325 T1 EACH PO
== END ==
LOC: SJCVCIMAG 08-19 08:14 → SJCVC 11:12
PROVIDERS: ATTEND Nuclear Medicine Nuclear Cardiology
DX: I65.23 Occlusion and stenosis of bilateral carotid arteries (principal); G45.3 Amaurosis fugax; I73.9 Peripheral vascular disease, unspecified; I77.9 Disorder of arteries and arterioles, unspecified; I10 Essential (primary) hypertension; E11.9 Type 2 diabetes mellitus without complications; E78.00 Pure hypercholesterolemia, unspecified; Z85.3 Personal history of malignant neoplasm of breast; Z72.89 Other problems related to lifestyle; Z79.899 Other long term (current) drug therapy; Z88.1 Allergy status to other antibiotic agents; Z79.4 Long term (current) use of insulin

== ENCOUNTER 2021-08-14 18:11 | Inpatient (IN) | payer OTHER ==
[~2021-08-14] VITALS: Ht 180.3 cm; Wt 100.0 kg
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
[2021-08-14 20:42] LABS: URINE BLOOD 3+ (Negative); URINE CLARITY CLEAR; URINE COLOR YELLOW; URINE GLUCOSE-RANDOM* NEGATIVE (Negative); URINE KETONES NEGATIVE (Negative); URINE LEUKOCYTES-REFLEX NEGATIVE (Negative); URINE NITRITE-REFLEX NEGATIVE (Negative); URINE PROTEIN (DIPSTICK) 3+ (Negative); URINE SPECIFIC GRAVITY >= 1.030 (1.005-1.035); URINE UROBILINOGEN 0.2 E.U./dl (0.2-1.0)
[2021-08-14 20:48] LABS: ICTOTEST (BILI CONFIRMATORY) Negative (Negative); URINE BILIRUBIN NEGATIVE (Negative)
--- NOTE | 2021-08-14 20:54 | NUR ---
LAB CALLED AND SAID THE CBC DRAWN BY LAB WAS CLOTTED. THEY WILL BE SENDING THE TECH BACK TO DRAW ADDITIONAL LABS.
[2021-08-14 21:04] LABS: AMP/METHAMP Negative (Negative); BARBITURATES Negative (Negative); BENZODIAZEPINES Negative (Negative); COCAINE Negative (Negative); METHADONE Negative (Negative); OPIATES Negative (Negative); PCP Negative (Negative)
[2021-08-14 21:07] LABS: ANION GAP 12 mmol/L (7-16); BUN 51 mg/dL (7-18); CALCIUM 8.5 mg/dL (8.5-10.1); CHLORIDE 111 mmol/L (98-107); CO2 22 mmol/L (21-32); CREATININE 1.8 mg/dL (0.6-1.0); GLUCOSE 185 mg/dL (74-106); POTASSIUM 3.5 mmol/L (3.5-5.1); SODIUM 145 mmol/L (136-145)
[2021-08-14 21:09] LABS: BACTERIA-REFLEX 1-9 Few /HPF (None Seen); CELLULAR CASTS 0-3 Few /LPF (None Seen); CRYSTALS None Seen /LPF (None Seen); HYALINE CASTS 4-10 Moderate /LPF (None Seen); MUCUS 4-6 Moderate strn/LPF (None Seen); SQUAMOUS 4-10 Moderate /LPF (0-3); URINE WBC-REFLEX 0-5 Rare /HPF (0-5)
[2021-08-14 21:18] LABS: ALBUMIN 2.3 g/dL (3.4-5.0); MAGNESIUM 2.2 mg/dL (1.8-2.4); PHOSPHORUS 4.5 mg/dL (2.6-4.7); SALICYLATE < 2.8 mg/dL (2.8-20.0); SGOT 248 U/L (15-37); SGPT 123 U/L (14-59); TOTAL BILIRUBIN 1.1 mg/dL (0.2-1.0); TOTAL PROTEIN 7.5 g/dL (6.4-8.2)
[2021-08-14 21:26] LABS: HEMATOCRIT 41.1 % (37.0-47.0); MCH 24.9 pg (26.0-34.0); MCHC 31.7 g/dL (28.0-37.0); MCV 78.5 fL (80.0-100.0); RBC 5.23 mil/uL (4.20-5.00); RDW 17.5 % (10.5-14.5); WBC 10.5 thou/uL (4.0-11.0)
--- NOTE | 2021-08-14 22:34 | NUR ---
SPOKE WITH KURTIS WHO IS A FRIEND. PT GIVEN PERMISSION TO TALK TO HER. SHE WAS ABLE TO TELL ME THAT HER AND ANOTHER FRIEND/NIEGHBOR THAT HAD CHECKED ON HER THE LAST FEW DAYS AND THAT "LILIAN" WOULD YELL BACK THAT SHE WAS OKAY. THEY FINALLY CALLED EMS AFTER NOT OPENING HER DOOR FOR MULTIPLE DAYS AND KNOWING THAT SHE WAS A T1D. KURTIS SAID THAT SHE BELIEVED THAT A GODDAUGHTER WAS HER DPOA BUT NOBODY KNEW CONTACT INFORMATION. SHE GAVE THE OTHERS NEIGHTBORS PHONE NUMBER ANKUSH [phone] (LISTED IN OUR SYSTEM EMERGENCY CONTACT/ NEXT OF KIN). ANOTHER PERSON CALLED SAYING SHE WAS JORDAN BARRY AND IS THE NIECE OF THE PATIENT. I CHECKED IN WITH THE PATIENT WHO SAID SHE KNEW JORDAN AND GAVE ME PERMISSION TO TALK TO HER.
[2021-08-14 23:18] LABS: CHOLESTEROL 200 mg/dL (<200); HDL CHOLESTEROL 29 mg/dL (>40); LDL CHOLESTEROL 152 mg/dL (<100); TC:HDL 6.9 Ratio (Not establshd); TRIGLYCERIDE 97 mg/dL (<150); VLDL 19 mg/dL (<40)
[2021-08-14 23:23] LABS: SERUM ASSESSMENT Clear
[2021-08-15 03:32] LABS: HEMATOCRIT 41.1 % (37.0-47.0); HEMOGLOBIN 12.9 gm/dL (12.0-15.0); MCH 24.9 pg (26.0-34.0); MCHC 31.3 g/dL (28.0-37.0); MCV 79.7 fL (80.0-100.0); RBC 5.15 mil/uL (4.20-5.00); RDW 17.8 % (10.5-14.5); WBC 8.8 thou/uL (4.0-11.0)
[2021-08-15 03:37] LABS: CALCIUM 7.9 mg/dL (8.5-10.1); CREATININE 1.7 mg/dL (0.6-1.0); POTASSIUM 3.7 mmol/L (3.5-5.1); TOTAL BILIRUBIN 0.9 mg/dL (0.2-1.0); TOTAL PROTEIN 6.7 g/dL (6.4-8.2)
--- NOTE | 2021-08-15 06:43 | NUR ---
THIS NURSE SPOKE WITH KURTIS WHO IS A CLOSE FAMILY FRIEND WHO HAS BEEN THE SPOKESPERSON FOR THE FAMILY. KURTIS WOULD LIKE TO SEE IF THE PT WOULD BE ABLE TO RECALL A PERSON NAMED YULY TO POSSIBLY GET THE NUMBER OF THE DPOA FOR THE PT.
--- NOTE | 2021-08-15 11:11 | EKG ---
[place] [address] [facility] [employer] [place] [address] ELECTROCARDIOGRAM REPORT Name: ROSHAN BRICE Room #: 170-8 ADM IN M.R.#: [id number] Admission: 08/14/21 Attend Phys: Edd Powell MD Discharge: Date of : 42 Report #: [id number] [facility] ED Test Date: 2021-08-14 Test Time: 22:09:42 Pat Name: ROSHAN BRICE Department: Room: 170 Gender: F Stitch Wheeler: deyanira : 1940 Requested By: Bruce Preston Order Number: [id number] MD: Chandrakant Gaines Measurements Intervals [place] Rate: 97 P: 187 WI: 219 QRS: 105 QRSD: 138 T: -29 QT: 419 QTc: 533 Interpretive Statements Sinus tachycardia Prolonged WI interval Occasional atrial premature complexes RBBB and LPFB Compared to ECG 03/18/2020 15:47:10 Atrial premature complex(es) now present Ventricular premature complex(es) no longer present Electronically Signed On 08-15-2021 11:10:46 ASSISTANT MEN'S LACROSSE COACH by Chandrakant Gaines [email or web address] <ELECTRONICALLY SIGNED> By: Chandrakant Gaines MD, [facility] 08/15/21 1110 08 08 Chandrakant Gaines MD, [facility] /EPI
[2021-08-15 17:37] VITALS: BP 152/95
--- NOTE | 2021-08-15 19:51 | NUR ---
PT ADIMTTED FROM ER ABOUT 1540PM, PT IS CONFUSED, PT CANNOT FOLLOW COMMANDS, PT IS CONTINUING IV FLUID, RN HAS REPORTED TO NEXT SHIFT TO KEEP EYE ON PT AND NEED CONTINUING MONITOR HR /A-FIB.
[2021-08-15 20:00] VITALS: BP 156/97
[2021-08-15] MEDS ORDERED: ELIQUIS5 MG PO ×2 (23:36→23:38)
--- NOTE | 2021-08-16 00:35 | NUR ---
PT ALERT AND ORIENTED X1. MOANS IF IN PAIN. WHEN ASKED IF IN PAIN SHE DENIES PAIN. TYLENOL SUPPOSITORY GIVEN FOR FACES 6. PT RESPOITIONED AFTER PICTURES TAKEN OF LEFT ELBOW ABRASION, RED-PURPLE BUTTOCKS, LEFT GLUTEAL FOLD OPEN WOUND. LEFT CALF AND LEFT INNER FOOT WOUND. ZGARD APPLIED TO BUTTOCKS. LEFT HIP AND LEG LOOK EXTERNALLY ROTATED. SEMICONDUCTOR PROCESSING TECHNICIAN NOTIFIED. XRAYS TO BE REDONE IN AM. PT SCREAMS WHEN TURNING PT TO SIDE. HR DOWN TO 86 WHILE LYING ON RIGHT SIDE. BED DOWN. CALL LIGHT IN REACH. BED ALARM IS ON. NOTIFIED SEMICONDUCTOR PROCESSING TECHNICIAN OF LA RESULTS NS BOLUS STARTED OVER 2 HRS.
[2021-08-16 00:53] VITALS: BP 151/88
[2021-08-16 02:43] LABS: HEMOGLOBIN 11.7 gm/dL (12.0-15.0); MCH 24.7 pg (26.0-34.0); MCHC 31.5 g/dL (28.0-37.0); MCV 78.4 fL (80.0-100.0); RBC 4.72 mil/uL (4.20-5.00); RDW 17.5 % (10.5-14.5); WBC 8.8 thou/uL (4.0-11.0)
[2021-08-16 02:50] LABS: CALCIUM 7.2 mg/dL (8.5-10.1); CREATININE 1.6 mg/dL (0.6-1.0); POTASSIUM 3.8 mmol/L (3.5-5.1)
[2021-08-16 03:05] LABS: GLYCOHEMOGLOBIN (HGB A1C) 8.7 % (4.8-5.6)
[2021-08-16 03:40] VITALS: BP 146/92
--- NOTE | 2021-08-16 06:34 | NUR ---
PT STILL CONFUSED. MOANS CONSTANTLY. DENIES PAIN AND SAYS SHE CAN'T STOP MAKING MOANING SOUND. REPEAT XRAY OF LEFT HIP TO BE DONE TODAY. LLE EXTERNALLY ROTATED. HR DOWN INTO 80S STILL AFIB WITH BBB.
[2021-08-16 08:05] VITALS: BP 149/83
[2021-08-16 11:56] VITALS: BP 130/86
--- NOTE | 2021-08-16 13:51 | EKG ---
[address] [address] ELECTROCARDIOGRAM REPORT Name: ROSHAN BRICE Room #: 360-P ADM IN M.R.#: [id number] Admission: 08/14/21 Attend Phys: Edd Powell MD Discharge: Date of : 44 Report #: [id number] [facility] ED Test Date: 2021-08-14 Test Time: 22:11:02 Pat Name: ROSHAN BRICE Department: Room: 360 Gender: F Patient Safety Coordinator: dyeanira : 1940 Requested By: Bruce Preston Order Number: [id number] MD: Jacobo Staton Measurements Intervals [place] Rate: 128 P: [place]: QRS: 104 QRSD: 133 T: -25 QT: 379 QTc: 553 Interpretive Statements Atrial fibrillation RBBB and LPFB Compared to ECG 08/14/2021 22:09:42 Sinus tachycardia no longer present First degree AV block no longer present Atrial premature complex(es) no longer present Electronically Signed On 08-16-2021 13:51:34 OUTBOARD MOTOR TESTER by Jacobo Staton [email or web address] <ELECTRONICALLY SIGNED> By: Jacobo Staton MD, FAC 08/16/21 1351 10 10 Jacobo Staton MD, [facility] /EPI
--- NOTE | 2021-08-16 15:07 | NUR ---
INITIAL ASSESSMENT: Received consult for discharge planning. CHAY reviewed chart and spoke with nursing and attending physician. Pt was admitted from home after being found on the floor in her home. Per ER report, pt's neighbors checked on her because they had not seen her for several days. They called EMS when pt would not answer the door. Pt with hx of COPD, DM, HTN. Pt has been hospitalized at [facility] in the past. Pt has used [facility]. Pt's PCP is Dr. Almaraz. Limited contact info for family listed. Contact number for friend, Nancy ([phone]) listed. CHAY placed call to this number and left voice message requested call back. Pt's nurse provided contact number of [phone], which is pt's niece. SW left voice message on this number requesting a call back. Listed number for Kadeem Catalan ([phone]) is not a correct number for family. CHAY contacted Dr. Almaraz's office and was provided with Leticia Henningtain's number ([phone]) who is listed as pt's Aunt. CHAY placed call to this number. No option to leave a voice message. Pt was last seen in Dr. Almaraz's office on July 20, 2021. CHAY spoke with Lyla at Dr. Almaraz's office. Pt was seen at that time and recently had foot surgery. No concerns noted at that time. Reviewed office contact info. No additional info available at this time. CHAY is awaiting call back from pt's family/friend at this time. CHAY is following to assist as needed with discharge planning.
--- NOTE | 2021-08-16 15:12 | 2DMMODE ---
[facility] [address] 2 D/M-MODE ECHOCARDIOGRAM Name: ROSHAN BRICE Room #: 360-P ADM IN M.R.#: [id number] Admission: 08/14/21 Attend Phys: Edd Powell MD Discharge: Date of : 44 Report #: [id number] THIS REPORT FOR: cc: Trung Almaraz MD, Neal A. MD Lundgren,Chandrakant Britton MD [facility] ~ APPROVED REPORT Study performed: 08/16/2021 14:26:05 EXAM: Comprehensive 2D, Doppler, and color-flow Echocardiogram Patient Location: Bedside Room #: 360 Status: routine BSA: 2.10 HR: 82 bpm BP: 149/83 mmHg Rhythm: Atrial Fibrillation Other Information Study Quality: Technically Difficult Technically limited study due to inability to position patient, uncooperative patient. Indications COPD Diabetes Atrial Fibrillation Non STEMI Elevated Troponin Hypertension/HDD Tricuspid Valve TR Peak Hilario.: 2.74 m/s TR Peak Gr.: 30.00 mmHg PA Pressure: 30.00 mmHg Left Ventricle The left ventricle is normal size. There is severe global hypokinesis of the left ventricle. There is normal left ventricular wall thickness. Left ventricular ejection fraction is severely decreased. LVEF is 20-25%. This study is not technically sufficient to allow evaluation of the LV diastolic function due to atrial fibrillation. [facility] [place] [place] [address] [place] [address] 2 D/M-MODE ECHOCARDIOGRAM Name: ROSHAN BRICE Room #: 360-P ADM IN M.R.#: [id number] Admission: 08/14/21 Attend Phys: Edd Powell MD Discharge: Date of : 44 Report #: [id number] Right Ventricle The right ventricle is normal size. Right ventricular systolic function is grossly normal. Atria Left atrium is dilated. Right atrium is dilated. Aortic Valve Aortic valve is grossly normal in structure. No aortic regurgitation is present. There is no aortic valvular stenosis. Mitral Valve The mitral valve is normal in structure. Mild mitral regurgitation. No evidence of mitral valve stenosis. Tricuspid Valve The tricuspid valve is normal in structure. There is mild tricuspid regurgitation. Estimated PAP 30mmHg plus the right atrial pressure. There is mild pulmonary hypertension. Pulmonic Valve The pulmonary valve is normal in structure. Great Vessels The aortic root is normal in size. The inferior vena cava is not well visualized. Pericardium There is no pericardial effusion. <Conclusion> Limited study Left ventricular ejection fraction is severely decreased. There is severe global hypokinesis of the left ventricle. LVEF is 20-25%. Both atria are dilated. Aortic valve is grossly normal in structure. No aortic regurgitation or stenosis The mitral valve is normal in structure. Mild mitral regurgitation. There is mild tricuspid regurgitation. Estimated pulmonary artery [facility] [address] [address] 2 D/M-MODE ECHOCARDIOGRAM Name: ROSHAN BRICE Room #: 360-P ADM IN M.R.#: [id number] Admission: 08/14/21 Attend Phys: Edd Powell MD Discharge: Date of : 44 Report #: [id number] pressure of 30mmHg plus the right atrial pressure. There is no pericardial effusion. <ELECTRONICALLY SIGNED> By: Chandrakant Gaines MD, FACC 08/16/211511 11 11 Chandrakant Gaines MD, FACC /INF
--- NOTE | 2021-08-16 15:33 | EKG ---
[address] [place] [address] ELECTROCARDIOGRAM REPORT Name: ROSHAN BRICE Room #: 360-P ADM IN M.R.#: [id number] Admission: 08/14/21 Attend Phys: Edd Powell MD Discharge: Date of : 44 Report #: [id number] [facility] Test Date: 2021-08-16 Test Time: 14:05:22 Pat Name: ROSHAN BRICE Department: Room: 360 P Gender: F Cupola Charger: ANTOINE : 1940 Requested By: Chandrakant aGines Order Number: [id number] MD: Gurpreet Marcus Measurements Intervals [place] Rate: 89 P: [place]: QRS: 122 QRSD: 140 T: -24 QT: 430 QTc: 524 Interpretive Statements Atrial fibrillation Ventricular premature complex versus Caridad beat RBBB and LPFB Compared to ECG 08/14/2021 22:11:02 Wide-complex premature complex(es) now present Electronically Signed On 08-16-2021 15:33:25 TWISTING OPERATOR by Gurpreet Marcus [email or web address] <ELECTRONICALLY SIGNED> By: Gurpreet Marcus MD 08/16/21 1533 1405 1405 Gurpreet Marcus MD /EPI
[2021-08-16 15:55] VITALS: BP 137/65
[2021-08-16 19:14] VITALS: BP 133/78
--- NOTE | 2021-08-16 19:43 | NUR ---
RN ASSUMED PT'S CARE AT 0700-1900PM, PT KNOWS HER NAME , BUT PT IS CONFUSED AND PT CANNOT FOLLOW COMMANDS, PT IS HIGH FALL RISK, PT STARTS EATING TODAY WITH ASSIST , BUT PT IS POOR EATING, PT IS CONTINUING , PT IS CONTINUING IV FLUID AND IV ABX,
[2021-08-16 23:07] LABS: ABSOLUTE NEUTROPHILS 8.2 thou/uL (1.4-8.2); BASOPHILS 0.1 % (0.0-2.0); EOSINOPHILS 0.4 % (0.0-3.0); HEMATOCRIT 41.8 % (37.0-47.0); HEMOGLOBIN 12.7 gm/dL (12.0-15.0); LYMPHOCYTES 12.5 % (24.0-44.0); MCH 24.7 pg (26.0-34.0); MCHC 30.4 g/dL (28.0-37.0); MCV 81.4 fL (80.0-100.0); MONOCYTES 9.7 % (1.0-8.0); PLATELET COUNT 159 thou/uL (150-400); POLYS 77.3 % (36.0-66.0); RBC 5.14 mil/uL (4.20-5.00); RDW 18.2 % (10.5-14.5); WBC 10.6 thou/uL (4.0-11.0)
--- NOTE | 2021-08-17 03:46 | NUR ---
PT ALERT X1. ANSWERS NS SOMETIMES BUT USUALLY SHE JUST MOANS INCOMPREHENSIBLE SOUNDS. ASSISTING WITH ALL ADLS. PT WAS ABLE TO SWALLOW CRUSHED MEDS AND APPLE SAUCE WITHOUT DIFFICULTY. IVFS INFUSING. VSS AFEBRILE. UNLABORED ON 2LNC. PT IS PALE. NO S/S BLEEDING NOTED.
[2021-08-17 05:33] LABS: HEMATOCRIT 35.6 % (37.0-47.0); HEMOGLOBIN 10.8 gm/dL (12.0-15.0); MCH 24.6 pg (26.0-34.0); MCHC 30.5 g/dL (28.0-37.0); MCV 80.8 fL (80.0-100.0); RBC 4.41 mil/uL (4.20-5.00); WBC 9.5 thou/uL (4.0-11.0)
[2021-08-17 05:55] LABS: CALCIUM 6.9 mg/dL (8.5-10.1); CREATININE 1.6 mg/dL (0.6-1.0); POTASSIUM 3.4 mmol/L (3.5-5.1)
--- NOTE | 2021-08-17 07:37 | EKG ---
[address] [employer] [place] [address] ELECTROCARDIOGRAM REPORT Name: ROSHAN BRICE Room #: 360- ADM IN M.R.#: [id number] Admission: 08/14/21 Attend Phys: Edd Powell MD Discharge: Date of : 44 Report #: [id number] [facility] ED Test Date: 2021-08-14 Test Time: 18:35:33 Pat Name: ROSHAN BRICE Department: Room: 360 Gender: F Personal Development Coach: UNKNOWN : 1940 Requested By: Bruce Preston Order Number: [id number] MD: Jacobo Staton Measurements Intervals [place] Rate: 95 P: 0 HI: 54 QRS: 121 QRSD: 110 T: -2 QT: 515 QTc: 648 Interpretive Statements Sinus rhythm Short HI interval Low voltage, precordial leads Right ventricular hypertrophy Prolonged QT interval Compared to ECG 03/18/2020 15:47:10 Short HI interval now present Low QRS voltage now present Right ventricular hypertrophy now present Prolonged QT interval now present Sinus tachycardia no longer present Electronically Signed On 08-17-2021 7:37:47 LACER AND TIER by Jacobo Staton [email or web address] <ELECTRONICALLY SIGNED> By: Jacobo Staton MD, FAC 08/17/21 0737 34 34 Jacobo Staton MD, FAC /EPI
[2021-08-17 08:09] LABS: HEMATOCRIT 39.6 % (37.0-47.0); HEMOGLOBIN 12.2 gm/dL (12.0-15.0); MCH 24.6 pg (26.0-34.0); MCHC 30.7 g/dL (28.0-37.0); MCV 80.1 fL (80.0-100.0); RBC 4.94 mil/uL (4.20-5.00); WBC 10.1 thou/uL (4.0-11.0)
[2021-08-17 08:27] LABS: ALBUMIN 1.8 g/dL (3.4-5.0); CALCIUM 7.7 mg/dL (8.5-10.1); CREATININE 1.4 mg/dL (0.6-1.0); POTASSIUM 4.3 mmol/L (3.5-5.1); TOTAL BILIRUBIN 1.1 mg/dL (0.2-1.0); TOTAL PROTEIN 5.6 g/dL (6.4-8.2)
[2021-08-17 08:34] VITALS: BP 123/64
--- NOTE | 2021-08-17 08:35 | NUR ---
LAB CALLED AND STATED BLOOD GLUCOSE WAS 705 THE AM DRAW. HG DROPPED 2 GRAMS. BS CHECKED AT XA=288. NOTIFIED QLIKVIEW DEVELOPER AM LABS WERE REDRAW. DAY SHIFT NS WAS NOTIFIED TO F/U WITH AM LABS .
[2021-08-17 11:20] VITALS: BP 121/74
--- NOTE | 2021-08-17 13:26 | NUR ---
CHAY reviewed chart and spoke with nursing and attending physician. Pt is slowly progressing towards goals for discharge. CHAY received call back from pt's friend, Nancy Wiggins ([phone]). Info obtained from Nancy regarding pt's living situation. Pt lives at home alone. Pt has normally been independent with ADLs. Pt does not drive. Per Nancy, pt's home is unkempt. Nancy has been cleaning out pt's home yesterday and today. Pt's clothing and bed linens are soiled. Nancy states she has known pt for a number of years and pt has been a very private person. She has not been and does not have children. Nancy is unsure if pt has ever completed a DPOA or living will. Pt does have distant family in [place]. 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 Nancy states pt has been to [facility] in the past. Pt will likely need placement when ready for discharge from the hospital. Nancy requested CHAY provide her contact info to Shaheen Catalan ([phone]). CHAY spoke with Shaheen via phone. Shaheen is pt's nephew. Provided update to Shaheen and provided Nancy's contact info for follow up. Shaheen states that he and his brother, Elliott, are pt's only surviving family. Shaheen and Elliott both live in [place], [place]. Per Shaheen, they usually speak with pt 2-3 times per month. Shaheen notes that pt had recent foot surgery and was recovering well at home. Shaheen is unaware if pt has ever completed DPOA ppwk. Shaheen states he never asked pt about her medical/financial affairs and she never discussed with him. Shaheen is willing to come to to assist pt as needed. CHAY explained that pt will likely need placement and unsure of her exterminator disposition. Shaheen will need to assist as pt's next of kin. Shaheen verbalized understanding and states he would like to speak with the physician and is hoping pt's cognition will improve. Pt prefers to be called "Lorraine." CHAY updated pt's nurse and attending physician. Contact info provided to attending physician. CHAY is following to assist as needed with discharge planning.
[2021-08-17 15:48] VITALS: BP 127/68
--- NOTE | 2021-08-17 18:30 | NUR ---
ASSUMED PATIENT CARE AT 0700. ALERT, CONFUSED. RESTLESS. PAIN MEDS GIVEN. ABLE TO HAVE 70% MEAL EACH MEAL. Q2H TURN. VSS. WILL KEEP MONITOR.
[2021-08-17 19:43] VITALS: BP 113/63
[2021-08-18 04:22] VITALS: BP 96/70
[2021-08-18 05:19] LABS: HEMATOCRIT 36.3 % (37.0-47.0); HEMOGLOBIN 11.2 gm/dL (12.0-15.0); MCH 24.7 pg (26.0-34.0); MCV 79.8 fL (80.0-100.0); RBC 4.55 mil/uL (4.20-5.00); RDW 17.9 % (10.5-14.5); WBC 7.6 thou/uL (4.0-11.0)
[2021-08-18 06:21] VITALS: BP 97/51
[2021-08-18 06:33] LABS: ALBUMIN 1.6 g/dL (3.4-5.0); POTASSIUM 4.2 mmol/L (3.5-5.1); TOTAL BILIRUBIN 0.6 mg/dL (0.2-1.0); TOTAL PROTEIN 5.2 g/dL (6.4-8.2)
--- NOTE | 2021-08-18 06:43 | NUR ---
PT NOT MAKING PROGRESS TOWARDS GOALS. PT NON VERBAL OVERNIGHT. PT MOANING AT TIMES BUT WAS NOT OBSERVED VOICING ANY WORDS. PT NOT FOLLOWING ANY COMMANDS.
[2021-08-18 11:17] VITALS: BP 107/66
--- NOTE | 2021-08-18 12:03 | NUR ---
SW reviewed chart and spoke with nursing and attending physician. Pt is on 1L of O2 and IV abx. MRI ordered today to r/o CVA. Pt unable to follow commands or participate with therapy. Pt's friend, Nancy, brought pt's insurance cards to the hospital today. Copies placed on pt's chart. 5N consult ordered. CHAY is following to assist as needed with discharge planning.
--- NOTE | 2021-08-18 15:21 | HC ---
[facility] [place] [address] CONSULTATION Name: ROSHAN BRICE Room #: 360-P ADM IN M.R.#: [id number] Admission: 08/14/21 Attend Phys: Edd Powell MD Discharge: Date of : 44 Report #: [id number] THIS REPORT FOR: cc: Trung Almaraz MD, Neal A. MD Althoff,Jose Guadalupe Sanches MD ~ DATE OF SERVICE: 08/16/2021 CHIEF COMPLAINT: Multiple pressure ulcerations. HISTORY OF PRESENT ILLNESS: This is a 81-year-old female patient with a history of diabetes and peripheral vascular disease, was admitted to the hospital with increasing shortness of breath and failure to thrive. She cannot provide much information about herself. She is intermittently cooperative, but cannot offer any details about her current condition. PAST MEDICAL HISTORY: Positive for history of right first toe amputation, history of peripheral vascular disease, status post stenting to the left common and external iliac artery and a stent to the right mid distal SFA. She is status post left transmetatarsal amputation, history of carotid artery disease, history of a sacral pressure ulceration, hyperlipidemia, weakness, failure to thrive, hypertension, diabetes, COPD, previous bilateral knee replacement, previous hysterectomy. SOCIAL HISTORY: The patient has no history of alcohol or tobacco use. FAMILY HISTORY: Unknown. REVIEW OF SYSTEMS: Unobtainable due to the patient's condition. ALLERGIES: INCLUDE JACQUELIN INHIBITORS, CLINDAMYCIN, GLIMEPIRIDE, LOSARTAN AND SOY. MEDICATIONS: Include insulin, hydrocodone, cefdinir, clopidogrel, Lasix, fenofibrate, albuterol, atorvastatin, amlodipine, olopatadine and fexofenadine. PHYSICAL EXAMINATION: VITAL SIGNS: At this time include temperature 36.3, pulse 84, respiration 16, blood pressure 130/86. GENERAL: This is a chronically ill-appearing female patient who appears to be in no obvious distress, but moans when touched or moved. HEENT: Head is normocephalic. NECK: Supple. LUNGS: Diminished. HEART: Irregular without murmur. ABDOMEN: Soft. Bowel sounds present. EXTREMITIES: Examination of the lower extremities and sacral-gluteal region [address] [address] CONSULTATION Name: ROSHAN BRICE Room #: 360- ADM IN M.R.#: [id number] Admission: 08/14/21 Attend Phys: Edd Powell MD Discharge: Date of : 44 Report #: [id number] demonstrates stage 3 pressure ulceration to the buttocks bilaterally and left ischial tuberosity. These are relatively shallow. There is some deep tissue surrounding the areas that are open. She has DTI/deep tissue injury to the left medial foot. She is also noted to have a small unstageable pressure ulcer of the left elbow with dry stable eschar. CLINICAL IMPRESSION: 1. Stage 3 pressure ulceration of the bilateral gluteal region and left ischial tuberosity with surrounding deep tissue injuries. 2. Unstageable pressure ulcer of the left elbow. 3. Deep tissue injury to the left medial foot. 4. History of pneumonia with suspected aspiration. 5. Acute kidney injury. 6. Paroxysmal atrial fibrillation. 7. Hypertension. 8. Hyperlipidemia. 9. Type 2 diabetes mellitus. RECOMMENDATIONS: At this point in time, the patient will need a low air loss mattress with q. 2 hour turning and repositioning. Moisture barrier cream to the sacral-gluteal and ischial region b.i.d. and p.r.n. Recommend Betadine paint to the left elbow and otherwise open to air, Betadine paint to the left medial foot. Prevalon boots for pressure prophylaxis bilaterally. Continue medical management, aggressive nutritional support. I appreciate being asked to see her in consultation. <ELECTRONICALLY SIGNED> By: Jose Guadalupe Peña MD 08/18/21 1521 1509 37 Jose Guadalupe Peña MD /nt
[2021-08-18 16:31] VITALS: BP 82/57
[2021-08-18 17:00] VITALS: BP 115/90
--- NOTE | 2021-08-18 18:36 | NUR ---
assumed care of pt at 0700. pt arousable, alert, confused. patients neighbor able to feed her for lunch, otherwise no PO intake. 175cc urine output in chavez. physician notified. awaiting orders. plans for MRI in morning.
[2021-08-19 03:29] VITALS: BP 125/68
--- NOTE | 2021-08-19 05:18 | NUR ---
PT NOT PROGRESSING TOWARD GOALS. PT AWAKE AND OPENS EYES SPONTANEOUSLY BUT MAKES NO PURPOSEFUL MOVEMENTS, DOES NOT FOLLOW COMMANDS, AND RESPONDS TO QUESTIONS ONLY WITH INCOMPREHENSIBLE SOUNDS. HER NEICE CALLED AND RN ASSISTED WITH PHONE CALL, PT NOTED TO SAY "HI HONEY" AND "YES" BUT OTHERWISE NON CONVERSANT. WOUND CARE PERFORMED PER ORDERS, REPOSITIONED AT ROUTINE INTERVALS. PT WITH MINIMAL URINARY OUTPUT THIS SHIFT; PER REPORT ALSO HAD MINIMAL OUTPUT ON DAY SHIFT. DAY SHIFT RECEIVED ORDER FOR 1X DOSE OF LASIX AROUND SHIFT CHANGE, ADMINISTERED BY THIS RN. PT STILL HAS HAD POOR URINARY OUTPUT; PROVIDER CERAMIST NOTIFIED, GAVE ORDERS TO CHECK BMP. WILL CONTINUE TO OBSERVE FOR CHANGES.
[2021-08-19 06:59] VITALS: BP 132/69
[2021-08-19 07:44] VITALS: BP 132/69
[2021-08-19 08:02] LABS: CALCIUM 7.8 mg/dL (8.5-10.1); CREATININE 2.1 mg/dL (0.6-1.0); POTASSIUM 4.2 mmol/L (3.5-5.1)
[2021-08-19 11:05] VITALS: BP 120/79
--- NOTE | 2021-08-19 11:58 | NUR ---
WOUND CARE F/U: ROUNDING TODAY. THIS PATIENT HAS BILATERAL GLUTEAL STAGE 3 PRESSURE ULCERS ANS A LEFT ISCHIAL STAGE 3. THERE IS AN UNSTAGEABLE PRESSURE INJURY TO THE LEFT ELBOW. -THE PATIENT WAS PLACED ON A [facility] PRESSURE REDISTRIBUTION BED TODAY, RN AND PL SQL DEVELOPER WAS PRESENT.
--- NOTE | 2021-08-19 15:36 | NUR ---
PER CHAY, FRANKIE SW spoke with nursing and attending physician. Pt to have MRI of the brain today. Will need therapy evals completed. CHAY discussed case with 5N rehab tech. 5N to evaluate pt after results of MRI are available and therapy evals have been completed. Pt will need post-acute placement. CHAY is following to assist as needed with discharge planning. SUSHIL Reis
[2021-08-19 16:16] VITALS: BP 125/81
[2021-08-19 20:03] VITALS: BP 105/56
[2021-08-20] VITALS (28 sets, daily range): BP systolic 55–139; BP diastolic 27–90
--- NOTE | 2021-08-20 05:49 | NUR ---
PT NOT PROGRESSING TOWARD GOALS, THOUGH IS MORE COMMUNICATIVE THIS SHIFT THAN PREVIOUSLY. NOW SAYING SHORT PHRASES LIKE "OK, OK, OK." SAYS "YES" WHEN ASKED IF HER NAME IS ROSHAN. STILL NOT FOLLOWING COMMANDS. ON SPECIALTY PRESSURE REDUCING MATTRESS DUE TO WOUNDS TO LEFT ISCHIAL TUBEROSITY AND SACRAL REGIONS, WOUND CARE PERFORMED PER ORDERS. BARNES IN PLACE WITH INADEQUATE URINARY OUTPUT NOTED, PROVIDERS AWARE. AFIB/SINUS KAYLEY NOTED ON SHOE STICKS REPAIRER. VSS OTHERWISE.
[2021-08-20 09:20] LABS: CALCIUM 7.6 mg/dL (8.5-10.1); CREATININE 2.2 mg/dL (0.6-1.0)
[2021-08-20 09:21] LABS: POTASSIUM 4.9 mmol/L (3.5-5.1)
--- NOTE | 2021-08-20 10:49 | NUR ---
Recommend start vitamin C and zinc sulfate supplementation due to multiple stage III wounds indicated by wound care
--- NOTE | 2021-08-20 12:58 | NUR ---
PATIENT TRANSFER TO ICU. WILL PLACE ON HOLD AND AWAIT NEW THERAPY ORDERS WHEN APPROPRIATE.
--- NOTE | 2021-08-20 13:02 | NUR ---
assumed care of pt at 0700. pt more alert this morning, able to eat food and take meds. around lunch time pt more lethargic, unable to eat. agonal breathing noted - 99% spo2 on 2L NC. cool extremeties. physician notified and orders received. sent to CT for imaging and transfered to ICU. brother and friend Nancy notified of change of pt status. report given to ICU nurse.
[2021-08-20 13:54] LABS: BE(vivo) -3.3 mmol/L (-2 to +3); HCO3 20.7 mmol/L (22.0-26.0); PCO2 34.1 mmHg (35.0-45.0); PO2 99.8 mmHg (80.0-100.0); pH 7.402 (7.360-7.450); sO2 97.6 % (92.0-98.0)
--- NOTE | 2021-08-20 14:46 | NUR ---
SW reviewed chart and spoke with nursing and attending physician. Pt was transferred to ICU Earlier today due to change in condition. Pt with new CVA. No weekend discharge planned. Pt's nephew and friend, Nancy, notified of change in condition. 5N is following pt for possible admission to inpt acute rehab. SW is following to assist as needed with discharge planning.
--- NOTE | 2021-08-20 14:59 | NUR ---
Pt TRANSFERRED TO ICU, WILL PLACE ON HOLD AND AWAIT NEW ORDERS WHEN APPROPRIATE
--- NOTE | 2021-08-20 15:33 | NUR ---
THIS RN RECEIVED REPORT FROM 3W RN. PT WAS BROUGHT FROM 3W TO ICU ROOM 239 @ 1230. PT ARRIVED ON 2L NC WITH SATS >98%. ADMINISTRATION INTERNSHIP TIFFANI WAS UNABLE TO ATTAIN A TEMPERATURE PT FELT COOL. THIS RN PUT PT IN WARM BLANKETS AND TURNED THE HEAT UP IN THE ROOM. LATER, PT TEMP READ 96.7. WILL CONTINUE TO MONITOR TEMP. PT DID NOT FOLLOW COMMANDS, BUT WAS AWAKE AND ALERT. PT RESPONDED "YES" OR "NO" AT TIMES, BUT DID NOT COMMUNICATE ANY FURTHER.
--- NOTE | 2021-08-20 19:08 | NUR ---
VAT CALLED FOR CENTRAL LINE INSERTION. PT HAS THROMBUS IN LEFT LEG SO CVAD MORE APPROPRIATE. CONSENT FOR MEDICAL NECESSITY. PT EXTREMELY RESTLESS NEEDING SEVERAL RN'S TO ASSIST WITH HOLDING PT'S HEAD AND ARMS. LIJ WAS WIDELY PATENT WITH USG. 6FR TL POWER ARCENIO 25CM INSERTED TO 3CM EXTERNAL. STAT CXR ORDERED. DIFFICULTY INSERTING INTRODUCER SKIN TOUGH. BLEEDING AT SITE ON HEPARIN GTT, GAUZE APPLIEDAND PRESSURE HELD.
--- NOTE | 2021-08-20 19:43 | NUR ---
cxr shows coil of line. power flushed and attempted reposition. Stat CXR ordered
--- NOTE | 2021-08-20 19:58 | NUR ---
PT PLACED IN RESTRAINTS PRIOR TO CENTRAL LINE INSERTION D/T AGITATION AND IMPULSIVENESS. LINE WAS DIFFICULT FOR IV TEAM TO INSERT AND DID NOT WANT PT PULLING AT EQUIPMENT. RESTRAINT ORDER WAS PUT IN PER KENDRICK PETERSON NP. KENDRICK ALSO ORDERED 1MG HALDOL ONETIME FOR PT'S RESTLESSNESS/IMPULSIVENESS. RN WILL MONITOR EFFECTIVENESS OF MEDICATION. PT HEMODYNAMICS NOT STABLE ENOUGH AT THIS TIME FOR PRECEDEX OR ANY OTHER SEDATIVE. RN TO FOLLOW POC.
--- NOTE | 2021-08-20 20:19 | NUR ---
VAT SPOKE TO VIRGEN NAVARRO. LIJ LEFT IN PLACE BUT ADDITIONAL PIV STARTED. NOT TO USE IJ UNTIL PLACEMENT CAN BE CONFIRMED, AND CHECKED WITH MD IN AM
[2021-08-21] VITALS (39 sets, daily range): BP systolic 95–167; BP diastolic 43–74
[2021-08-21 03:38] LABS: ABSOLUTE NEUTROPHILS 13.8 thou/uL (1.4-8.2); BASOPHILS 0.1 % (0.0-2.0); EOSINOPHILS 0.1 % (0.0-3.0); HEMATOCRIT 34.9 % (37.0-47.0); HEMOGLOBIN 10.8 gm/dL (12.0-15.0); LYMPHOCYTES 5.4 % (24.0-44.0); MCH 24.2 pg (26.0-34.0); PLATELET COUNT 137 thou/uL (150-400); POLYS 86.4 % (36.0-66.0); RBC 4.47 mil/uL (4.20-5.00); RDW 18.2 % (10.5-14.5)
[2021-08-21 03:54] LABS: CALCIUM 7.5 mg/dL (8.5-10.1); CREATININE 2.6 mg/dL (0.6-1.0); POTASSIUM 4.3 mmol/L (3.5-5.1)
[2021-08-21 04:31] LABS: ANISOCYTOSIS 2+; BURR CELLS 3+; LARGE PLATELETS FEW; TARGET CELLS OCCASIONAL
--- NOTE | 2021-08-21 08:03 | NUR ---
PLACED 2 NECKLACES IN A PLASTIC BAG AND PUT THEM WITH THE REST OF PATIENT'S BELONGINGS.
[2021-08-21 09:20] LABS: BE(vivo) -4.5 mmol/L (-2 to +3); HCO3 20.5 mmol/L (22.0-26.0); PCO2 37.3 mmHg (35.0-45.0); pH 7.357 (7.360-7.450); sO2 51.5 % (92.0-98.0)
[2021-08-21 09:21] LABS: PO2 28.5 mmHg (80.0-100.0)
--- NOTE | 2021-08-21 10:54 | NUR ---
ABG FROM CENTRAL LINE DRAWN TO CONFIRM PLACEMENT IS VENOUS. DISCUSSED RESULTS OF CXR AND ABG WITH DR MANZO. USING PIV'S FOR NOW BUT WILL KEEP CENTRAL LINE FOR NOW PER DR MANZO. FURTHER STUDIES TO BE DONE
--- NOTE | 2021-08-21 12:04 | NUR ---
TOOK PATIENT DOWN FOR CT OF CHEST AT 1140, PT PLACED ON NC AT 2LPM, IV DRIPS REMAIN IN PLACE AND ON AT THIS TIME. PT TOLERATED TRANSPORT AND PROCEDUE WELL WITHOUT INCIDENT.
--- NOTE | 2021-08-21 12:50 | NUR ---
PT APTT REDRAWN AT 1030 RESULTED IN 80.6 LEVEL. ACCORDING TO HEPARIN DRIP PROTOCOL ANY APTT IN RANGE OF 71-90 NEED TO REDUCE GTT BY 2ML/HR OR 2UNITS/KG/HR. DRIP AT THIS TIME IS CHANGED FROM 9UNITS TO 7 (6.8ML/HR). WILL REDRAW APTT AT 1630. LEFT IJ WAS ALSO REMOVED AT 1230 BY IV TEAM RN AND PRESSURE HELD ON SITE UNTIL BLEEDING STOPPED. SMALL OCCULSIVE DRESSING PLACED ON SITE.
--- NOTE | 2021-08-21 12:59 | NUR ---
LEFT CENTRAL LINE SHOWS MALPOSITIONED IN AZYGOS VEIN, NOT BEING USED AT PRESENT SO LINE PULLED DRG AND PRESSURE APPLIED TO SITE. PT HAS 2 PIV'S AT PRESENT
--- NOTE | 2021-08-21 14:30 | NUR ---
SPOKE WITH DR. MANZO REGARDING PLACMENT OF A RIGHT SIDED IJ IV CATH IN [facility] BY IV TEAM RN AND WAS GIVEN THE OK BY . ACCORDING TO IV TEAM RN PT DOES NOT HAVE GOOD ACCESS FOR PICC LINE PLACMENT IN RIGHT ARM, AND LEFT ARM CURRENTLY HAS 20G IV IN THE SAME VEIN THAT A PICC LINE WOULD NEED TO BE PLACED. CONSENT FOR RIGHT SIDE IJ FOR MEDICAL NECCESSITY SIGNED BY IV TEAM RN AND WITNESSES.
--- NOTE | 2021-08-21 15:20 | NUR ---
VAT CONSULTED FOR RIJ PER DR MANZO, RIJ WAS WIDELY PATENT WITH USG. 5FR TL POWER PICC TRIMMED TO 25CM ABLE TO VIEW PLACEMENT WITH 3CG BUT UNABLE TO CONDIRM. STAT CXR ORDERED. PT TOLERATED WELL. PRESSURE HELD TO SITE FOR BLEEDING, PT ON HEPARIM GTT.
--- NOTE | 2021-08-21 16:47 | NUR ---
CXR CONFIRMED RIJ PLACEMENT. RELEASED FOR IMMEDIATE USE PER PROTOCOL TO MARLENE NAVARRO
--- NOTE | 2021-08-21 16:49 | NUR ---
SPOKE TO DR. MANZO REGARDING PT LOW BLOOD SUGARS DESPITE GETTING D5W AT 80/HR, INSTRUCTED TO GIVE PATIENT D10W AT 80/HR. PT HAS RIGHT IJ THAT IS GOOD TO USE AND VERIFIED BY CXR AND IV TEAM RN.
--- NOTE | 2021-08-21 17:23 | NUR ---
PT HAS 2 PRESSURE WOUNDS THAT APPEAR TO BETWEEN STAGES 2&3 ON HER SACRAL AREA. THEY APPEAR TO IN VARIOUS STAGES OF HEALING BOTH NEW AND OLD INJURIES FROM EITHER AT HOME OR PREVIOUS HOSPITALIZATIONS. HEAVY BARRIER CREAM APPLIED TO THE AREA, FOAM ADHESIVE DRESSINGS PLACED ON THE AREA. WILL CONSULT WOUND CARE TEAM WELL.
[2021-08-22] VITALS (39 sets, daily range): BP systolic 102–165; BP diastolic 43–85
[2021-08-22 06:41] LABS: HEMOGLOBIN 10.2 gm/dL (12.0-15.0)
[2021-08-22 06:44] LABS: HEMATOCRIT 32.5 % (37.0-47.0); MCH 24.2 pg (26.0-34.0); MCHC 31.4 g/dL (28.0-37.0); PLATELET COUNT 152 thou/uL (150-400); RBC 4.22 mil/uL (4.20-5.00); RDW 18.2 % (10.5-14.5); WBC 14.8 thou/uL (4.0-11.0)
[2021-08-22 06:49] LABS: CALCIUM 7.1 mg/dL (8.5-10.1); CREATININE 2.7 mg/dL (0.6-1.0); MAGNESIUM 2.3 mg/dL (1.8-2.4); PHOSPHORUS 5.3 mg/dL (2.6-4.7); POTASSIUM 4.5 mmol/L (3.5-5.1)
[2021-08-22 07:31] LABS: ABSOLUTE NEUTROPHILS 12.9 thou/uL (1.4-8.2); ANISOCYTOSIS 1+; NUCLEATED RBCS 1 /100WBC; PLATELET ESTIMATE NORMAL
--- NOTE | 2021-08-22 08:36 | NUR ---
PT APTT REDRAW AT 0600 CAME BACK AT 50.1 NO CHANGE IN FLOW RATE INDICATED ACCORDING TO HEPARIN PROTOCOL. ALSO AT 0800 PT RESTRAINTS ALLOWED TO /NOT RENEWED, PATIENT TAKEN OUT OF RESTRAINTS AT THIS TIME. DOES NOT APPEAR TO BE INTERFERRING WITH MEDICAL DEVICES AT THIS TIME. WILL CONTINUE TO REASSESS AND MONITOR.
--- NOTE | 2021-08-22 10:15 | NUR ---
ATTEMPTED TO FEED PT HONEY THICKENED LIQUID VIA SPOON TO ASSESS ABILITY TO SWALLOW AND TAKE IN ORAL INTAKE. PT WAS ABLE TO SWALLOW HOWEVER, STARTED TO COUGH A FEW MINUTES AFTER PO INTAKE, STOPPED FEEDING AFTER 2 HALF TEASPOONS I DID NOT TRUST PT ABILITY TO PROTECT OWN AIRWAY. WOULD RECOMMEND SPEECH RE-EVAL PT TO ASSESS ABILIY.
--- NOTE | 2021-08-22 13:34 | NUR ---
SPOKE WITH DR. MANZO THIS MORNING A BEDSIDE WITH PATIENT REGARDING PT NEED FOR SWITCHING OVER PATIENT MEDICATIONS FROM PO TO IV FORM PT CANNOT TOLERATE PO MEDICATIONS AND OR ORAL NUTRITION. PT ALSO IN NEED OF PRN PAIN MEDICATION. WILL TAKE PT TO MRI FOR MRI OF THE HEAD THIS AFTERNOON.
--- NOTE | 2021-08-22 19:50 | NUR ---
SPOKE WITH DR. MANZO ABOUT TALKING WITH FAMILY AND PRN IVP PAIN MEDS. ORDERS RECEIVED.
--- NOTE | 2021-08-22 21:20 | NUR ---
SPOKE WITH NEPHEW OF PATIENT. PATIENT STATES THAT HE LIVES IN [place], [place]. LAST SAW PATIENT APPROXIMATELY 8 YEARS AGO WHEN SHE VISITED HIS HOME. LAST SPOKE WITH THE PATIENT BY PHONE APPROXIMATELY 2 WEEKS AGO. UPDATED ON PATIENT CURRENT STATUS AND ALL QUESTIONS ANSWERED DURING THE CALL.
[2021-08-23] VITALS (24 sets, daily range): BP systolic 94–158; BP diastolic 61–102
--- NOTE | 2021-08-23 04:30 | NUR ---
BARNES LEAKING AROUND [facility]. NEW BARNES CATH WITH UROMETER BAG PLACED WITH URINE VISUALIZED TO CONFIRM PLACEMENT.
[2021-08-23 04:58] LABS: CREATININE 2.4 mg/dL (0.6-1.0); MAGNESIUM 2.3 mg/dL (1.8-2.4); POTASSIUM 4.3 mmol/L (3.5-5.1)
[2021-08-23 05:21] LABS: BASOPHILS 0.2 % (0.0-2.0); MONOCYTES 6.8 % (1.0-8.0); WBC 15.3 thou/uL (4.0-11.0)
[2021-08-23 05:23] LABS: ABSOLUTE NEUTROPHILS 13.7 thou/uL (1.4-8.2); EOSINOPHILS 0.2 % (0.0-3.0); HEMATOCRIT 31.8 % (37.0-47.0); HEMOGLOBIN 9.9 gm/dL (12.0-15.0); LYMPHOCYTES 3.8 % (24.0-44.0); MCHC 31.2 g/dL (28.0-37.0); MCV 76.8 fL (80.0-100.0); PLATELET COUNT 157 thou/uL (150-400); RBC 4.15 mil/uL (4.20-5.00); RDW 17.7 % (10.5-14.5)
--- NOTE | 2021-08-23 14:09 | NUR ---
Discussed during unit rounds with Pulmonary MD and during los with the attending physician. CM passed on contact information to the attending physican for for patient nephew to discuss goals of care. Speech eval for diet, honey or nectar thick liquids. Patient on o2 2L/nc, wound care, heprin gtt for dvt. Will continue following as needed.
[2021-08-24] VITALS (24 sets, daily range): BP systolic 92–152; BP diastolic 42–75
[2021-08-24 08:24] LABS: HEMATOCRIT 31.7 % (37.0-47.0); HEMOGLOBIN 9.7 gm/dL (12.0-15.0); MCH 23.6 pg (26.0-34.0); MCHC 30.8 g/dL (28.0-37.0); MCV 76.7 fL (80.0-100.0); RBC 4.13 mil/uL (4.20-5.00); WBC 15.2 thou/uL (4.0-11.0)
[2021-08-24 08:34] LABS: ALBUMIN 1.3 g/dL (3.4-5.0); CALCIUM 7.4 mg/dL (8.5-10.1); CREATININE 1.9 mg/dL (0.6-1.0); MAGNESIUM 2.2 mg/dL (1.8-2.4); POTASSIUM 3.7 mmol/L (3.5-5.1); TOTAL BILIRUBIN 0.8 mg/dL (0.2-1.0); TOTAL PROTEIN 5.9 g/dL (6.4-8.2)
--- NOTE | 2021-08-24 09:13 | NUR ---
Nutrition: REC daily MVI, zinc sulfate and vitamin C supplementation due to severity of wounds, suboptimal po intakes.
--- NOTE | 2021-08-24 10:11 | EEG ---
[facility] [place] [address] ELECTROENCEPHALOGRAM Name: ROSHAN BRICE Room #: 239-P ADM IN M.R.#: [id number] Admission: 08/14/21 Attend Phys: Edd Powell MD Discharge: Date of : 44 Report #: [id number] THIS REPORT FOR: //name// DATE OF SERVICE: 08/20/2021 This patient is being evaluated for altered mental status. EEG was done by placing the electrode by standard 10-20 system of electrode placement. Both referential and sequential montages were used for recording. Background activity in this patient's EEG is about 6 Hz and 25 microvolt, is a poorly formed monotonous activity. Photic stimulation is unremarkable. Throughout the record, no active epileptiform activity was noticed. IMPRESSION: This is an abnormal EEG because it is diffusely slow and poorly formed. That is a nonspecific finding, which typically occur with encephalopathy, but is nonspecific and can occur in multiple etiologies including dementia, effect of psychotropic medication, etc. Clinical correlation is recommended. <ELECTRONICALLY SIGNED> By: Carlos Villasenor MD 08/24/21 1011 [id number] Carlos Villasenor MD /nt
--- NOTE | 2021-08-24 10:11 | HC ---
[facility] [place] [address] CONSULTATION Name: ROSHAN BRICE Room #: 239-P ADM IN M.R.#: [id number] Admission: 08/14/21 Attend Phys: Edd Powell MD Discharge: Date of : 44 Report #: [id number] THIS REPORT FOR: cc: Trung Almaraz MD, Neal A. MD Khosla, Parveen K. MD ~ DATE OF SERVICE: 08/20/2021 HISTORY OF PRESENT ILLNESS: A 81-year-old female patient who is unable to provide any reliable history. In fact, the patient did not talk much during my evaluation. I reviewed the records in the computer and it looks like this patient has multiple comorbidities, but at least some of the records indicate that she was able to talk when she came in, but she did not talk to me at all. She was admitted after a fall. I do not know how the fall affected her. I do not know whether she hit her head or not. From all the records, it looks like this patient keeps to herself and I do not know what her baseline status is. Record is indicated she had a fall, failure to thrive, history of weakness, history of hypertension, hyperlipidemia, diabetic foot ulcer, peripheral artery disease, stent and the leg amputation. She apparently had carotid disease with endarterectomy, knee replacement, COPD. I tried to call the family and there is only 1 friend's number there, but that is not the number, that is [phone] number, meaning the not available. She had an MRI of the brain. I reviewed those films. It has a tiny stroke. That will not explain the patient's symptoms. She has been seen by Cardiology and she also had acute renal injury as she came in. Her troponin was also high at one time. She also had rhabdo. This was a relevant 14-point review of systems: She also has a history of hypoglycemia. As per record, she has a history of hysterectomy and apparently had a sacral ulcer. She has a history of carotid disease, but I do not know what it was. This was a relevant 14-point review of system I can find. PAST MEDICAL HISTORY: Positive for diabetes. FAMILY HISTORY: Unavailable. SOCIAL HISTORY: According to the record, she does not smoke. PHYSICAL EXAMINATION: Very limited because she did not cooperate with anything. She did not say anything for me. She did not have any speech output. She did not follow any commands. I saw her moving the 3 extremities, but she did not cooperate with the sensory examination. I attempted cranial nerve examination 2-12, but she could not cooperate. There was no meningeal sign. She did not cooperate with the fundus examination. She has atrial fibrillation. She does not appear to be in any respiratory difficulty. She is morbidly obese. VITAL SIGNS: Blood pressure is 139/90, respiration 24, pulse 63, temperature is 97.[address]. [address] [address] CONSULTATION Name: ROSHAN BRICE Room #: 239-P [facility] IN M.R.#: [id number] Admission: 08/14/21 Attend Phys: Edd Powell MD Discharge: Date of : 44 Report #: [id number] LABORATORY DATA: Platelet count is 118. Her GFR is still 28 with a creatinine of 2.1. Troponin was very high when she came in. Her LDL is high. Her TSH is normal. IMPRESSION: Tiny stroke in the right cerebral hemisphere. That is not the explanation of the patient's symptoms. That is too small to cause any symptoms. It is possible the patient had a big stroke in the full extent and not sure. More likely, this patient's symptoms are most likely is because of encephalopathy. I do not know what her baseline is, but she does not look good at all. I will start an EEG and talk to hospitalist because I do not know how aggressive it is to be in this patient who has multiple problems. Thank you very much for this referral and if you have any questions, please feel free to contact me. <ELECTRONICALLY SIGNED> By: Carlos Villasenor MD 08/24/21 1011 [id number] Carlos Villasenor MD /nt
[2021-08-24 13:24] LABS: ABSOLUTE NEUTROPHILS 12.5 thou/uL (1.4-8.2)
--- NOTE | 2021-08-24 13:50 | NUR ---
Discussed during unit rounds and los with the attending physician. Patient is requiring 02 2L/nc, diet is puree with honey thick liquids. Spoke with her nephew Shaheen, sent skilled list choice, if she progress to were she can start working with therapy, will send snf referral after patient nephew provided family choices. might have to look into differed options if she is unable to tolerate therapy. Will cont following as needed.
[2021-08-24 14:09] LABS: PLATELET COUNT 214 thou/uL (150-400)
[2021-08-24 14:10] LABS: PLATELET ESTIMATE NORMAL
[2021-08-24 14:11] LABS: LARGE PLATELETS FEW
--- NOTE | 2021-08-24 22:26 | NUR ---
UNABLE TO GET TEMPERATURE ON PATIENT. RECTAL PROBE INSERTED AND AJAY HUGGER APPLIED.
[2021-08-25] VITALS (13 sets, daily range): BP systolic 100–164; BP diastolic 43–84
[2021-08-25 05:28] LABS: HEMOGLOBIN 9.3 gm/dL (12.0-15.0)
[2021-08-25 05:30] LABS: CALCIUM 7.4 mg/dL (8.5-10.1); CREATININE 1.8 mg/dL (0.6-1.0); MCH 23.9 pg (26.0-34.0); MCHC 31.1 g/dL (28.0-37.0); POTASSIUM 3.8 mmol/L (3.5-5.1); RBC 3.9 mil/uL (4.20-5.00); RDW 17.9 % (10.5-14.5); WBC 12.1 thou/uL (4.0-11.0)
--- NOTE | 2021-08-25 08:59 | NUR ---
Medicare skilled list choice sent to patient shareerubio john.
--- NOTE | 2021-08-25 12:22 | NUR ---
PT TRANSFERRED TO [facility], ROOM 351. ALL BELONGINGS COLLECTED, REPORT GIVEN TO HELENA STARK ON ROOM AIR W/TELE & hEPARIN GTT INFUSING. FAMILY FRIEND NOTIFIED OF TRANSFER.
--- NOTE | 2021-08-25 14:27 | NUR ---
PT TRANSFERRED FROM ICU TO ROOM 351. ALERT TO SELF. UNABLE TO FOLLOW [id number] COMMANDS OR HAVE ANY CONVERSATION. UNABLE TO ASSESS EXTREMITY STRENGTH. ON ROOM AIR AT MOMENT, NO SIGNS OF DISTRESS NOTED. WOUND CARE TREATMENT COMPLETED AND PICTURES TAKEN. PT REPOSITION EVERY 2 HOURS.
[2021-08-26 03:30] VITALS: BP 123/77
[2021-08-26 07:40] VITALS: BP 125/82
[2021-08-26 08:00] VITALS: BP 125/82
--- NOTE | 2021-08-26 12:19 | NUR ---
CHAY reviewed chart and spoke with nursing and attending physician. Pt was transferred to from ICU yesterday. SNF list has been sent to pt's nephew, Shaheen, for review. CHAY discussed case with KathrineN cardiac rehab nurse. Pt to be re-evaluated by 5N tomorrow to determine if pt meets admission criteria. CHAY spoke with pt's nephew, Shaheen, via phone to provide update and discuss post-acute placement. Shaheen states he received the SNF list and will discuss with pt's friend, Nancy. Shaheen has contact info for CHAY to follow up with facility preferences. CHAY notified attending physician that therapy evals need to be re-ordered. Therapy on hold as pt transferred to the ICU. Palliative care consult noted to be in chart today to discuss goals of care/code status. CHAY is following to assist as needed with discharge planning.
[2021-08-26 16:00] VITALS: BP 130/67
--- NOTE | 2021-08-26 16:49 | NUR ---
Patient resting quietly, no distress noted, alert only to self. wound care performed. patient repositioned every two hours. Patient remains on Heparin gtt. Patient seen by speech therapy, change to nectar thick liquids with puree diet.
[2021-08-26 19:11] VITALS: BP 143/76
[2021-08-26 20:00] VITALS: BP 143/76
[2021-08-27 03:53] VITALS: BP 121/75
--- NOTE | 2021-08-27 04:50 | NUR ---
PT SLOWLY PROGRESSING TOWARD GOALS. ALERT AND ANSWERS SOME YES/NO QUESTIONS, WHEN ASKED, "HOW ARE YOU TONIGHT?" RESPONDED "FINE THANKS HOW ARE YOU?" DOES NOT ANSWER ORIENTATION QUESTIONS AND WAS UNABLE TO STATE HER NAME, HOWEVER. RESTLESS AND WITHOUT PURPOSEFUL MOVEMENT. BARNES REMAINS IN PLACE TO DD. WOUND CARE PER ORDERS TO COCCYX/SACRAL, ISCHIAL, ELBOW AND FOOT WOUNDS. REPOSITIONED AT ROUTINE INTERVALS. MEDICATED X1 FOR PAIN D/T REPEATED CRYING OUT/MOANING/GRIMACING WITH GOOD EFFECT. VSS THROUGHOUT THE SHIFT.
[2021-08-27 05:13] LABS: HEMOGLOBIN 9.7 gm/dL (12.0-15.0)
[2021-08-27 05:16] LABS: HEMATOCRIT 30.9 % (37.0-47.0); MCH 23.9 pg (26.0-34.0); MCHC 31.3 g/dL (28.0-37.0); MCV 76.2 fL (80.0-100.0); RBC 4.06 mil/uL (4.20-5.00); WBC 14.6 thou/uL (4.0-11.0)
[2021-08-27 05:42] LABS: CALCIUM 7.5 mg/dL (8.5-10.1); CREATININE 2.1 mg/dL (0.6-1.0); POTASSIUM 4.5 mmol/L (3.5-5.1)
[2021-08-27 07:30] VITALS: BP 141/82
--- NOTE | 2021-08-27 14:13 | NUR ---
SW reviewed chart and spoke with nursing and attending physician. Pt is progressing towards goals for discharge. Awaiting input from 5N at this time. Attending physician to speak with pt's nephew, Shaheen to provide update and discuss discharge plan. SW left voice message for Shaheen, requesting call back to discuss SNF placement options. CHAY is following to assist as needed with discharge planning.
--- NOTE | 2021-08-27 14:51 | NUR ---
PT IS NOT PROGRESSING TOWARDS POC. ALERT TO SELF, UNABLE TO FOLOW COMMANDS. MOANS AT TIMES AND RESTLESS. CONTINUE TO BE ON ROOM AIR, NO SIGNS OF DISTRESS. HEPARIN DRIP D/C PER MD ORDERS. NO BM YET. WOUND CARE TREATMENT COMPLETED. REPOSTION EVERY [address] FALL PRECAUTIONS IN PLACE, WILL CONTINUE TO MONITOR\.
[2021-08-27 15:23] VITALS: BP 137/82
[2021-08-27 19:59] VITALS: BP 121/80
[2021-08-27 20:30] VITALS: BP 121/80
[2021-08-28 04:21] VITALS: BP 137/78
[2021-08-28 07:17] VITALS: BP 122/71
--- NOTE | 2021-08-28 07:30 | NUR ---
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 She moans occasionally and able to verbalized yes,yes. She has been repositioned. Tolerating room air well with no respiratory distress. Took meds crushed with applesauce. SB with 1st degree AV ,BBB per tele. Bilateral pedal pulses present with doppler. Wound dressings intact. No bm this shift. Bed alarm for safety.
[2021-08-28 15:18] VITALS: BP 124/79
[2021-08-28 19:08] VITALS: BP 169/73
[2021-08-29 04:19] VITALS: BP 121/65
--- NOTE | 2021-08-29 06:08 | NUR ---
No change in neuro status. Expressive aphasia and moans intermittently. She has been repositioned. Tolerating room air well with no respiratory distress. Wound dressings intact. Slowly making some progress towards care plan goals.
[2021-08-29 07:24] VITALS: BP 148/90
[2021-08-29 15:10] VITALS: BP 120/85
--- NOTE | 2021-08-29 16:11 | NUR ---
THIS NURSE SPOKE WITH HAILE BARRY ( NEPHEW) . HE STATES THAT HE WOULD LIKE HIS AUNT TO BE A DNR... HE ALSO STATED THAT [facility] WAS TRYING TO OBTAIN AUTH FOR [facility] FOR DISCHARGE. I ASKED HIM TO FIND A SECOND OPTION IN CASE [facility] IS FULL OR DENIES PATIENT. HE WILL SPEAK WITH ANKUSH MENSAH WHO IS A NEIGHBOR THAT HELPS WITH PATIENT AND WILL CALL TOMORROW WITH A SECOND OPTION FOR DISCHARGE IF NEEDED
[2021-08-29 19:39] VITALS: BP 111/63
[2021-08-30 03:49] VITALS: BP 128/78
--- NOTE | 2021-08-30 04:22 | NUR ---
Pt. has been repositioned. She has expressive aphasia but can follow commands. Tolerating room air with no respiratory distress.Incontinent of bm last night then this am. Wound dressings intact. Making some progress towards care plan goals.
[2021-08-30 07:20] VITALS: BP 116/65
[2021-08-30 11:09] VITALS: BP 126/62
[2021-08-30 15:39] VITALS: BP 116/45
--- NOTE | 2021-08-30 15:58 | NUR ---
CHAY reviewed chart and spoke with nursing and attending physician. Pt is progressing towards goals for discharge. CHAY spoke with Kiara and Lee Ann at [facility], who states they are able to accept pt tomorrow. Facility staff to reach out to pt's nephewShaheen. Facility had requested a Medicaid application to be submitted. CHAY explained that it is unknown if she would qualify for Medicaid at this time, and they would need to discuss with pt's family. CHAY updated pt's nurse and attending physician. Pt will need stretcher van transportation. CHAY left voice message for pt's nephew, Shaheen. CHAY spoke with pt's friend, Nancy, to provide update. Nancy will go see pt at the facility tomorrow afternoon/evening. CHAY is following to assist as needed with discharge planning.
--- NOTE | 2021-08-30 16:57 | NUR ---
I have reviewed the documentation by AZUCENA MCCOY from 08/30/21 to 08/30/21 and I concur with it. MOO CANTRELL, PT, DPT
--- NOTE | 2021-08-30 17:52 | NUR ---
TOOK OVER CARE OF THE PT AT 0700. PT IS PROGRESSING SLOWLY, BUT WILL DICHARGE TO [facility] TOMORROW. PT IS UNABLE TO COMUNICATE EXCEPT TO ANSWER YES OR NO TO SIMPLE QUESTIONS. PT SEEMS COMPFORTABLE AND DENIES ANY PAIN PT WAS TURNED Q2.
[2021-08-30 19:05] VITALS: BP 142/70
== END 2021-08-31 | DRG 871 ==
LOC: ER 18:11 → EROBS 22:01 → 3W 22:01 → ICU 08-20 12:49 → 3W 08-25 12:07
PROVIDERS: Emergency Medicine; Internal Medicine; Nurse Practitioner Family; Specialist; ADMIT Hospitalist; ATTEND Hospitalist
PROC: 05HY33Z Insertion of Infusion Device into Upper Vein, Percutaneous Approach (ICD-10-PCS; principal; 2021-08-20)
DX: A41.9 Sepsis, unspecified organism (principal); J69.0 Pneumonitis due to inhalation of food and vomit; L89.323 Pressure ulcer of left buttock, stage 3; L89.313 Pressure ulcer of right buttock, stage 3; G92.9 Unspecified toxic encephalopathy; J96.21 Acute and chronic respiratory failure with hypoxia; E43 Unspecified severe protein-calorie malnutrition; I21.4 Non-ST elevation (NSTEMI) myocardial infarction; I63.89 Other cerebral infarction; M62.82 Rhabdomyolysis; N17.9 Acute kidney failure, unspecified; D68.59 Other primary thrombophilia; I42.9 Cardiomyopathy, unspecified; I82.412 Acute embolism and thrombosis of left femoral vein; I82.432 Acute embolism and thrombosis of left popliteal vein; R77.8 Other specified abnormalities of plasma proteins; I10 Essential (primary) hypertension; J44.9 Chronic obstructive pulmonary disease, unspecified; Z96.653 Presence of artificial knee joint, bilateral; E78.5 Hyperlipidemia, unspecified; E11.51 Type 2 diabetes mellitus with diabetic peripheral angiopathy without gangrene; R53.81 Other malaise; Z60.2 Problems related to living alone; I48.0 Paroxysmal atrial fibrillation; L89.020 Pressure ulcer of left elbow, unstageable; I65.23 Occlusion and stenosis of bilateral carotid arteries; R13.10 Dysphagia, unspecified; S90.32XA Contusion of left foot, initial encounter; E11.649 Type 2 diabetes mellitus with hypoglycemia without coma; Z20.822 Contact with and (suspected) exposure to COVID-19; Z66 Do not resuscitate; Z90.710 Acquired absence of both cervix and uterus; Z88.1 Allergy status to other antibiotic agents; Z88.8 Allergy status to other drugs, medicaments and biological substances; Z89.421 Acquired absence of other right toe(s); Z68.30 Body mass index [BMI] 30.0-30.9, adult; X58.XXXA Exposure to other specified factors, initial encounter; Y93.89 Activity, other specified; Y92.89 Other specified places as the place of occurrence of the external cause; Y99.8 Other external cause status
CPT/HCPCS: 10078; 10779; 10879; 50455